=== PATIENT | male | born 1965 | race African-American/Black ===

== ENCOUNTER 2016-10-26 17:22 | Emergency (ER) | payer SELFPAY ==
[~2016-10-26] VITALS: Ht 175.3 cm; Wt 74.8 kg
[2016-10-26] MEDS ORDERED: ATEN25TA PO (17:33)
[2016-10-26] MEDS ORDERED: HYDR-552 PO (17:39)
[2016-10-26 17:42] LABS: APPEARANCE,URINE Clear (CLEAR); BILIRUBIN,URINE Negative (NEGATIVE); BLOOD, URINE Trace-lysed Ery/uL (NEGATIVE); COLOR,URINE Yellow (YELLOW); KETONES,URINE Negative (NEGATIVE); LEUKOCYTE ESTERASE ,URINE Negative (NEGATIVE); NITRITE, URINE Negative (NEGATIVE); PH,URINE 5.5 (5.0-8.0); PROTEIN,URINE Trace mg/dl (NEGATIVE); UGLUCOSE Negative (NEGATIVE); UROBILINOGEN,URINE 0.2 EU/dL (0.2)
[2016-10-26 17:42] LABS: BASOPHILS # (AUTO) 0.1 /CMM (0.0-0.2); BASOPHILS % (AUTO) 0.9 % (0.0-2.0); EOSINOPHILS # (AUTO) 0.5 /CMM (0.0-0.7); EOSINOPHILS % (AUTO) 8.5 % (0.0-6.0); HEMATOCRIT 37 % (39-51); HEMOGLOBIN 12.3 g/dL (13.5-17.5); LYMPHOCYTES # (AUTO) 2.7 /CMM (0.8-4.8); LYMPHOCYTES % (AUTO) 49.3 % (20.0-44.0); MEAN CORPUSCULAR HEMOGLOBIN 32 PG (26.0-33.0); MEAN CORPUSCULAR HGB CONC 33 g/dl (31.0-36.0); MEAN CORPUSCULAR VOLUME 95 fL (80-96); MONOCYTES # (AUTO) 0.4 /CMM (0.1-1.30); MONOCYTES % (AUTO) 6.6 % (2.0-12.0); NEUTROPHILS % (AUTO) 34.7 % (43.0-81.0); PLATELET COUNT (AUTO) 326 /CMM (150-450); RDW COEFFICIENT OF VARIATION 14.2 (11.5-15.0); RED BLOOD CELL COUNT(AUTO) 3.86 MIL/uL (4.5-6.0); WHITE BLOOD COUNT (AUTO) 5.7 K/uL (4.3-11.0)
--- NOTE | 2016-10-26 17:46 | NUR ---
PT TO ED ROOM 03. MEDICAL CLEARANCE FOR SCVN PLACEMENT. A/A/O. NAD. VS WNL. AMBULATORY W STEADY GAIT. SIDE RAISL UP. HOB ELEVATED. URINE COLLECTED, BLOOD DRAWN, SEEN AND EVALUATED BY ED PROVIDER.
[2016-10-26 17:49] LABS: CALCIUM, SERUM 8.8 mg/dL (8.5-10.1); CARBON DIOXIDE 30 mmol/L (21-32); CHLORIDE 108 mmol/L (98-107); CREATININE 0.9 mg/dL (0.6-1.3); GLUCOSE 86 mg/dL (74-106); POTASSIUM 4.4 mmol/L (3.5-5.1); SODIUM SERUM 142 mmol/L (136-145); UREA NITROGEN, BLOOD 12 mg/dL (7-18)
[2016-10-26 17:55] LABS: ALANINE AMINOTRANSFERASE 28 U/L (12-78); ALBUMIN 3.6 g/dL (3.4-5.0); ALCOHOL, BLOOD < 3 mg/dL (0-0); ALKALINE PHOSPHATASE 80 U/L (46-116); ASPARTATE AMINOTRANSFERASE 35 U/L (15-37); BILIRUBIN,DIRECT 0.1 mg/dL (0.0-0.2); BILIRUBIN,TOTAL 0.2 mg/dL (0.2-1.0); TOTAL PROTEIN, SERUM 7.1 g/dL (6.4-8.2)
[2016-10-26 17:56] LABS: BACTERIA,URINE Few /HPF (None Seen); RBC,URINE 0-2 /HPF (0-2); SQUAMOUS EPITHELIAL CELL,UR Rare /HPF (None Seen); WBC,URINE 0-2 /HPF (0-3)
[2016-10-26 17:58] LABS: ACETAMINOPHEN 0 ug/ml (10-30)
--- NOTE | 2016-10-26 17:59 | NUR ---
CALLED FOR FOOD TRAY
--- NOTE | 2016-10-26 18:07 | NUR ---
CALLED TRANSPORT ETA IS 60MIN
[2016-10-26 19:37] VITALS: BP 160/89
--- NOTE | 2016-10-26 19:37 | NUR ---
TRANSPORT AT BEDSIDE REPORT GIVEN TO EMT.
== END 2016-10-26 19:38 | disposition home or self-care (01) ==
LOC: ER 17:24 → EDBD 17:24 → ER 19:38
DX: F14.10 Cocaine abuse, uncomplicated (principal); F12.10 Cannabis abuse, uncomplicated; R45.851 Suicidal ideations; I10 Essential (primary) hypertension; F31.9 Bipolar disorder, unspecified; F20.9 Schizophrenia, unspecified; G89.29 Other chronic pain; M54.9 Dorsalgia, unspecified
CPT/HCPCS: 36415; 80048-TC; 80076-TC; 80305; 81000-TC; 85025-TC; A4606; G0480; Z7610

== ENCOUNTER 2016-11-05 16:02 | Emergency (ER) | payer SELFPAY ==
[~2016-11-05] VITALS: Ht 175.3 cm; Wt 74.4 kg
[2016-11-05 16:02] VITALS: BP 130/69
[~2016-11-05 16:02] MED LIST: ATEN25TA PO; HYDR-552 PO
--- NOTE | 2016-11-05 16:05 | NUR ---
SEND [place] [facility] MEDICAL CLEARANCE FOR ADMISSION. VSS. NO SI/NO HI
[2016-11-05 16:39] LABS: APPEARANCE,URINE Clear (CLEAR); BILIRUBIN,URINE SMALL (NEGATIVE); BLOOD, URINE Trace-intact Ery/uL (NEGATIVE); KETONES,URINE Trace (NEGATIVE); LEUKOCYTE ESTERASE ,URINE Negative (NEGATIVE); NITRITE, URINE Negative (NEGATIVE); PROTEIN,URINE Negative (NEGATIVE); UGLUCOSE Negative (NEGATIVE); UROBILINOGEN,URINE 0.2 EU/dL (0.2)
[2016-11-05 16:40] LABS: COLOR,URINE Dark Yellow (YELLOW)
[2016-11-05 16:45] LABS: BASOPHILS % (AUTO) 0.8 % (0.0-2.0); EOSINOPHILS # (AUTO) 0.4 /CMM (0.0-0.7); HEMATOCRIT 40 % (39-51); HEMOGLOBIN 13.3 g/dL (13.5-17.5); LYMPHOCYTES # (AUTO) 2.8 /CMM (0.8-4.8); LYMPHOCYTES % (AUTO) 47.7 % (20.0-44.0); MEAN CORPUSCULAR HEMOGLOBIN 32 PG (26.0-33.0); MEAN CORPUSCULAR HGB CONC 33 g/dl (31.0-36.0); MEAN CORPUSCULAR VOLUME 95 fL (80-96); MONOCYTES # (AUTO) 0.3 /CMM (0.1-1.30); MONOCYTES % (AUTO) 4.8 % (2.0-12.0); NEUTROPHILS # (AUTO) 2.3 /CMM (1.8-8.9); NEUTROPHILS % (AUTO) 39.7 % (43.0-81.0); PLATELET COUNT (AUTO) 308 /CMM (150-450); RDW COEFFICIENT OF VARIATION 14.2 (11.5-15.0); RED BLOOD CELL COUNT(AUTO) 4.18 MIL/uL (4.5-6.0); WHITE BLOOD COUNT (AUTO) 5.8 K/uL (4.3-11.0)
[2016-11-05 16:55] LABS: BACTERIA,URINE Few /HPF (None Seen); SQUAMOUS EPITHELIAL CELL,UR Rare /HPF (None Seen); WBC,URINE 0-2 /HPF (0-3)
[2016-11-05 16:56] LABS: CALCIUM, SERUM 8.5 mg/dL (8.5-10.1); CREATININE 1.1 mg/dL (0.6-1.3); POTASSIUM 3.9 mmol/L (3.5-5.1)
[2016-11-05 17:02] LABS: ALBUMIN 3.8 g/dL (3.4-5.0); BILIRUBIN,TOTAL 0.2 mg/dL (0.2-1.0); SALICYLATE 1.6 mg/dL (2.8-20.0)
--- NOTE | 2016-11-05 17:36 | NUR ---
CALLED [facility] FOR TRANPSORT, ETA OF 30 MINS WAS GIVEN.
--- NOTE | 2016-11-05 17:58 | NUR ---
[facility]
== END 2016-11-05 18:02 | disposition home or self-care (01) ==
LOC: ER 16:05
DX: F31.9 Bipolar disorder, unspecified (principal); I10 Essential (primary) hypertension; R45.851 Suicidal ideations; F20.9 Schizophrenia, unspecified; G89.29 Other chronic pain; M54.9 Dorsalgia, unspecified
CPT/HCPCS: 36415; 80048-TC; 80076-TC; 80305; 81000-TC; 85025-TC; A4606; G0480; Z7610

== ENCOUNTER 2016-11-14 19:49 | Emergency (ER) | payer OTHER ==
[~2016-11-14] VITALS: Ht 175.3 cm; Wt 72.6 kg
--- NOTE | 2016-11-14 20:49 | NUR ---
+ ADMITS TO USING DRUGS - MARIJUANA, ALCOHOL AND CRYSTAL METH. ON ASSESSMENT
--- NOTE | 2016-11-14 20:50 | NUR ---
PROVIDED SITTER AT BESIDE FOR SAFETY.
[2016-11-14 21:24] LABS: BASOPHILS % (AUTO) 0.6 % (0.0-2.0); EOSINOPHILS # (AUTO) 0.4 /CMM (0.0-0.7); EOSINOPHILS % (AUTO) 6.9 % (0.0-6.0); HEMATOCRIT 34 % (39-51); HEMOGLOBIN 11.4 g/dL (13.5-17.5); LYMPHOCYTES # (AUTO) 3.2 /CMM (0.8-4.8); LYMPHOCYTES % (AUTO) 49.9 % (20.0-44.0); MEAN CORPUSCULAR HEMOGLOBIN 32 PG (26.0-33.0); MEAN CORPUSCULAR HGB CONC 33 g/dl (31.0-36.0); MEAN CORPUSCULAR VOLUME 95 fL (80-96); MONOCYTES # (AUTO) 0.5 /CMM (0.1-1.30); MONOCYTES % (AUTO) 8.5 % (2.0-12.0); NEUTROPHILS # (AUTO) 2.2 /CMM (1.8-8.9); NEUTROPHILS % (AUTO) 34.1 % (43.0-81.0); PLATELET COUNT (AUTO) 233 /CMM (150-450); RDW COEFFICIENT OF VARIATION 14.8 (11.5-15.0); RED BLOOD CELL COUNT(AUTO) 3.57 MIL/uL (4.5-6.0); WHITE BLOOD COUNT (AUTO) 6.3 K/uL (4.3-11.0)
[2016-11-14 21:25] LABS: APPEARANCE,URINE Clear (CLEAR); BILIRUBIN,URINE Negative (NEGATIVE); BLOOD, URINE Trace-intact Ery/uL (NEGATIVE); COLOR,URINE Yellow (YELLOW); KETONES,URINE Negative (NEGATIVE); LEUKOCYTE ESTERASE ,URINE Negative (NEGATIVE); NITRITE, URINE Negative (NEGATIVE); PH,URINE 5.5 (5.0-8.0); PROTEIN,URINE Negative (NEGATIVE); UGLUCOSE Negative (NEGATIVE)
[2016-11-14 21:35] LABS: CALCIUM, SERUM 8.2 mg/dL (8.5-10.1); CREATININE 0.8 mg/dL (0.6-1.3); POTASSIUM 3.3 mmol/L (3.5-5.1)
[2016-11-14 21:39] LABS: ALBUMIN 3.2 g/dL (3.4-5.0); BILIRUBIN,TOTAL 0.1 mg/dL (0.2-1.0); TOTAL PROTEIN, SERUM 6.6 g/dL (6.4-8.2)
[2016-11-14 21:41] LABS: SALICYLATE 2.2 mg/dL (2.8-20.0)
[2016-11-14 21:48] LABS: BACTERIA,URINE None seen /HPF (None Seen); RBC,URINE 2-3/HPF /HPF (0-2); SQUAMOUS EPITHELIAL CELL,UR Rare /HPF (None Seen); URINE AMORPHOUS URATE Few /HPF (None Seen); WBC,URINE 0-2 /HPF (0-3)
--- NOTE | 2016-11-14 21:54 | NUR ---
ART CAPILLA PACK TRAIN DRIVER AT BEDSIDE
[2016-11-14] MEDS ORDERED: POTASSIUM CHLORIDE 20 MEQ TAB.PRT.SR PO ONE ×2 (21:56→22:00)
--- NOTE | 2016-11-14 22:22 | NUR ---
AWARE OF PLANS FOR TRANSFER. RESP TIGN QUIETLY WITH NO S/S OF DISTRESS.
--- NOTE | 2016-11-14 22:37 | NUR ---
CALLED [facility] FOR TRANSPORT, ETA OF 30 MINS WAS GIVEN.
--- NOTE | 2016-11-14 23:51 | NUR ---
AWAITING TRANSPORT. NAD NOTED
--- NOTE | 2016-11-15 00:38 | NUR ---
[facility] ETA: 30 MINS. PREVIOUS AMBULANCE WAS APPARENTLY CANCELLED BY AN ER STAFF MEMBER PER [facility] DISPATCH.
[2016-11-15 01:13] VITALS: BP 138/81
--- NOTE | 2016-11-15 01:13 | NUR ---
STILL AWAITING [facility] TRANSPORT. NAD NOTED.
--- NOTE | 2016-11-15 01:18 | NUR ---
REPORT GIVEN TO [facility] STAFF.
== END 2016-11-15 01:25 ==
LOC: ER 19:50
DX: F10.10 Alcohol abuse, uncomplicated (principal); E87.6 Hypokalemia; R45.851 Suicidal ideations; F12.10 Cannabis abuse, uncomplicated; F14.10 Cocaine abuse, uncomplicated; F15.10 Other stimulant abuse, uncomplicated; F41.9 Anxiety disorder, unspecified; F20.9 Schizophrenia, unspecified; F17.200 Nicotine dependence, unspecified, uncomplicated; I10 Essential (primary) hypertension; G89.29 Other chronic pain; M54.9 Dorsalgia, unspecified
CPT/HCPCS: 36415; 80048; 80076; 80305; 80329; 81001; 85025; 99285; 99406; A4606; G0480 ×2; Z7610; 81000-TC

== ENCOUNTER 2017-01-21 01:30 | Emergency (ER) | payer OTHER ==
[~2017-01-21] VITALS: Ht 175.3 cm; Wt 81.6 kg
--- NOTE | 2017-01-21 01:40 | NUR ---
To bed 12 a 51 yo male patient bb self; si with plan; jump in front of traffic. Patient also admits to drinking etoh. Nad noted. Breathing even and unlabored. vss. nondiaphoretic. safety and suicide precautions in place.
[2017-01-21 02:16] LABS: APPEARANCE,URINE CLEAR (CLEAR); BILIRUBIN,URINE NEGATIVE (NEGATIVE); BLOOD, URINE TRACE Ery/uL (NEGATIVE); COLOR,URINE DARK YELLOW (YELLOW); KETONES,URINE TRACE (NEGATIVE); LEUKOCYTE ESTERASE ,URINE NEGATIVE (NEGATIVE); NITRITE, URINE NEGATIVE (NEGATIVE); PROTEIN,URINE NEGATIVE (NEGATIVE); UGLUCOSE NEGATIVE (NEGATIVE); UROBILINOGEN,URINE 0.2 EU/dL (0.2)
[2017-01-21 02:18] LABS: BASOPHILS % (AUTO) 0.3 % (0.0-2.0); EOSINOPHILS # (AUTO) 0.3 /CMM (0.0-0.7); EOSINOPHILS % (AUTO) 4.1 % (0.0-6.0); HEMATOCRIT 43 % (39-51); HEMOGLOBIN 14.1 g/dL (13.5-17.5); LYMPHOCYTES # (AUTO) 2.6 /CMM (0.8-4.8); LYMPHOCYTES % (AUTO) 35.9 % (20.0-44.0); MEAN CORPUSCULAR HEMOGLOBIN 31 PG (26.0-33.0); MEAN CORPUSCULAR HGB CONC 33 g/dl (31.0-36.0); MEAN CORPUSCULAR VOLUME 93 fL (80-96); MONOCYTES # (AUTO) 0.4 /CMM (0.1-1.30); MONOCYTES % (AUTO) 5.9 % (2.0-12.0); NEUTROPHILS % (AUTO) 53.8 % (43.0-81.0); PLATELET COUNT (AUTO) 165 /CMM (150-450); RDW COEFFICIENT OF VARIATION 15.5 (11.5-15.0); WHITE BLOOD COUNT (AUTO) 7.4 K/uL (4.3-11.0)
[2017-01-21 02:21] LABS: BACTERIA,URINE Few /HPF (None Seen); SQUAMOUS EPITHELIAL CELL,UR Few /HPF (None Seen); WBC,URINE 0-2 /HPF (0-3)
[2017-01-21 02:25] LABS: CALCIUM, SERUM 8.4 mg/dL (8.5-10.1); CREATININE 1.1 mg/dL (0.6-1.3)
[2017-01-21 02:31] LABS: BILIRUBIN,DIRECT 0.1 mg/dL (0.0-0.2); BILIRUBIN,TOTAL 0.2 mg/dL (0.2-1.0); SALICYLATE 3.4 mg/dL (2.8-20.0); TOTAL PROTEIN, SERUM 7.8 g/dL (6.4-8.2)
[2017-01-21] MEDS ORDERED: POTASSIUM CHLORIDE 20 MEQ TAB.PRT.SR PO ONE ×2 (02:57→03:00)
[2017-01-21 04:20] VITALS: BP 129/80
--- NOTE | 2017-01-21 04:20 | NUR ---
patient is sleeping comfortably in bed at this time. vss.
--- NOTE | 2017-01-21 05:30 | NUR ---
patient is awake, asking for some snacks, provided crackers and juice. nad noted.
--- NOTE | 2017-01-21 05:45 | NUR ---
Patient walked out from facility. Dr Boswell notified and Charge Nurse Hi notified. VSS. Ambulatory with steady gait.
== END 2017-01-21 07:15 | disposition left against medical advice (07) ==
LOC: ER 01:30
DX: R45.851 Suicidal ideations (principal); F10.129 Alcohol abuse with intoxication, unspecified; F12.10 Cannabis abuse, uncomplicated; G89.29 Other chronic pain; M54.9 Dorsalgia, unspecified; F31.9 Bipolar disorder, unspecified; F20.9 Schizophrenia, unspecified; I10 Essential (primary) hypertension; F17.200 Nicotine dependence, unspecified, uncomplicated
CPT/HCPCS: 36415; 80048; 80076; 80305; 80329; 81001; 85025; 99284; A4606; G0480 ×2; Z7610; 81000-TC

== ENCOUNTER 2017-07-06 05:04 | Emergency (ER) | payer OTHER ==
[~2017-07-06] VITALS: Ht 175.3 cm; Wt 72.6 kg
--- NOTE | 2017-07-06 05:30 | NUR ---
PT AMBULATORY TO ER BED 12. BIB SELF WAS SENT FORM [facility] FOR MEDICAL CLEARANCE FOR SI, WITH PLAN OF WANTING TO RUN INTO TRAFFIC. PT PLACED ON SPORTS MEDICINE SPECIALIST. VSS/RESP EVEN UNLABORED/NAD NOTED/SKIN WARM AND DRY/DENIES N-V-D/AFEBRILE/AOX4. AWAITING MD TABOR.
--- NOTE | 2017-07-06 05:35 | NUR ---
LAB AT BEDSIDE TO DRAW.
[2017-07-06 05:38] LABS: BASOPHILS % (AUTO) 0.2 % (0.0-2.0); EOSINOPHILS % (AUTO) 4.8 % (0.0-6.0); HEMATOCRIT 44 % (39-51); HEMOGLOBIN 14.7 g/dL (13.5-17.5); LYMPHOCYTES # (AUTO) 3.6 /CMM (0.8-4.8); LYMPHOCYTES % (AUTO) 47.2 % (20.0-44.0); MEAN CORPUSCULAR HGB CONC 33 g/dl (31.0-36.0); MEAN CORPUSCULAR VOLUME 95 fL (80-96); MONOCYTES # (AUTO) 0.4 /CMM (0.1-1.30); MONOCYTES % (AUTO) 5.4 % (2.0-12.0); NEUTROPHILS # (AUTO) 3.2 /CMM (1.8-8.9); NEUTROPHILS % (AUTO) 42.4 % (43.0-81.0); PLATELET COUNT (AUTO) 380 /CMM (150-450); RDW COEFFICIENT OF VARIATION 17.1 (11.5-15.0); RED BLOOD CELL COUNT(AUTO) 4.62 MIL/uL (4.5-6.0); WHITE BLOOD COUNT (AUTO) 7.5 K/uL (4.3-11.0)
[2017-07-06 05:47] LABS: CALCIUM, SERUM 8.5 mg/dL (8.5-10.1); CREATININE 0.8 mg/dL (0.6-1.3); POTASSIUM 3.7 mmol/L (3.5-5.1)
[2017-07-06 05:55] LABS: BILIRUBIN,DIRECT 0.1 mg/dL (0.0-0.2); BILIRUBIN,TOTAL 0.2 mg/dL (0.2-1.0); SALICYLATE 3.6 mg/dL (2.8-20.0)
--- NOTE | 2017-07-06 07:25 | NUR ---
ENDORSED TO BERNARDINO HIGH FOR MELBA.
--- NOTE | 2017-07-06 08:06 | NUR ---
PT NOTED AWAKE AND ALERT. AMBULATORY WITH A STEADY GAIT. WANTED TO STEP OUTSIDE. MD AWARE.
--- NOTE | 2017-07-06 08:09 | NUR ---
PT BACK IN THE ER UNIT.
--- NOTE | 2017-07-06 09:19 | NUR ---
SPOKE TO MARY JANE AT [facility] INTAKE [phone]. PER MARY JANE ALCOHOL LEVEL MUST BE BELOW 100 TO BE ACCEPTED.
--- NOTE | 2017-07-06 10:30 | NUR ---
PT PROVIDED WITH FOOD TRAY ASA REQUESTED.
[2017-07-06 13:30] VITALS: BP 129/71
--- NOTE | 2017-07-06 14:11 | NUR ---
SPOKE TO FOSTER AT [facility], THEY ARE SAVING A BED FOR HIM AND PATIENT CAN BE TRANSFERED OVER WHEN SERUM ALCOHOL LEVEL IS BELOW 100.
--- NOTE | 2017-07-06 14:40 | NUR ---
PT NOTED AAOX3. WALKING AROUND THE UNIT. DENIES SI/HI. CALM, COOPERATIVE, DIRECTABLE.
--- NOTE | 2017-07-06 15:00 | NUR ---
Patient is resting comfortably in bed with eyes closed. Easily aroused. VSS
--- NOTE | 2017-07-06 15:50 | NUR ---
Patient eloped from facility. ER MD notified.
== END 2017-07-06 16:25 | disposition left against medical advice (07) ==
LOC: ER 05:07
DX: F10.129 Alcohol abuse with intoxication, unspecified (principal); R45.851 Suicidal ideations; F31.9 Bipolar disorder, unspecified; I10 Essential (primary) hypertension; G89.29 Other chronic pain; F20.9 Schizophrenia, unspecified; F17.200 Nicotine dependence, unspecified, uncomplicated; Z60.2 Problems related to living alone
CPT/HCPCS: 36415; 80048-TC; 80076-TC; 80305; 85025-TC; A4606; G0480; Z7610

== ENCOUNTER 2017-07-06 23:28 | Emergency (ER) | payer OTHER ==
[~2017-07-06] VITALS: Ht 175.3 cm; Wt 81.6 kg
--- NOTE | 2017-07-06 23:40 | NUR ---
TO BED 15 A 51 YO MALE PATIENT [place], PT STATES + SI - HI PLAN TO "OVERDOSE ON MEDICATIONS." PATIENT IS AAOX3, NAD NOTED. VSS. SKIN WARM AND DRY. AMBULATORY. SAFETY AND SUICIDE PRECAUTION IN PLACE. WILL CLOSELY MONITOR.
--- NOTE | 2017-07-07 00:20 | NUR ---
WAREHOUSE LOGISTICS MANAGER AT BEDSIDE TO DRAW BLOOD.
[2017-07-07 00:38] LABS: BASOPHILS % (AUTO) 0.1 % (0.0-2.0); EOSINOPHILS % (AUTO) 4.8 % (0.0-6.0); HEMATOCRIT 44 % (39-51); LYMPHOCYTES # (AUTO) 2.9 /CMM (0.8-4.8); LYMPHOCYTES % (AUTO) 44.9 % (20.0-44.0); MEAN CORPUSCULAR HGB CONC 34 g/dl (31.0-36.0); MEAN CORPUSCULAR VOLUME 94 fL (80-96); MONOCYTES # (AUTO) 0.3 /CMM (0.1-1.30); MONOCYTES % (AUTO) 5.1 % (2.0-12.0); NEUTROPHILS % (AUTO) 45.1 % (43.0-81.0); PLATELET COUNT (AUTO) 336 /CMM (150-450); RDW COEFFICIENT OF VARIATION 16.8 (11.5-15.0); RED BLOOD CELL COUNT(AUTO) 4.72 MIL/uL (4.5-6.0); WHITE BLOOD COUNT (AUTO) 6.6 K/uL (4.3-11.0)
[2017-07-07 00:39] LABS: APPEARANCE,URINE CLEAR (CLEAR); BILIRUBIN,URINE NEGATIVE (NEGATIVE); BLOOD, URINE 1+ Ery/uL (NEGATIVE); COLOR,URINE YELLOW (YELLOW); KETONES,URINE NEGATIVE (NEGATIVE); LEUKOCYTE ESTERASE ,URINE NEGATIVE (NEGATIVE); NITRITE, URINE NEGATIVE (NEGATIVE); PROTEIN,URINE NEGATIVE (NEGATIVE); UGLUCOSE NEGATIVE (NEGATIVE); UROBILINOGEN,URINE 0.2 EU/dL (0.2)
[2017-07-07 00:52] LABS: BACTERIA,URINE None seen /HPF (None Seen); SQUAMOUS EPITHELIAL CELL,UR Few /HPF (None Seen); WBC,URINE 0-2 /HPF (0-3)
[2017-07-07 00:57] LABS: CALCIUM, SERUM 8.6 mg/dL (8.5-10.1); CREATININE 0.9 mg/dL (0.6-1.3); POTASSIUM 4.1 mmol/L (3.5-5.1)
[2017-07-07 01:03] LABS: BILIRUBIN,DIRECT 0.1 mg/dL (0.0-0.2); BILIRUBIN,TOTAL 0.2 mg/dL (0.2-1.0); SALICYLATE 3.2 mg/dL (2.8-20.0); TOTAL PROTEIN, SERUM 8.1 g/dL (6.4-8.2)
--- NOTE | 2017-07-07 01:24 | NUR ---
PATIENT IS SLEEPING COMFORTABLY AT THIS TIME.
[2017-07-07 05:12] VITALS: BP 141/74
--- NOTE | 2017-07-07 05:12 | NUR ---
PATIENT IN BED, NO S/S OF DISTRESS NOTED.
--- NOTE | 2017-07-07 07:00 | NUR ---
PATIENT WOKE UP. SEEN WALKED WITH STEADY GAIT AND SAID HES HUNGRY. PATIENT PROVIDED WITH FOOD AND JUICE.
--- NOTE | 2017-07-07 07:14 | NUR ---
PATIENT VERBALIZED AT THIS TIME THAT HE IS NOT SUICIDAL OR NO THOUGHTS/PLANS OF HURTING HIMSELF AND HE JUST WANTS TO GO HOME. VSS. NAD NOTED. DR MIX NOTIFIED.
== END 2017-07-07 07:23 | disposition left against medical advice (07) ==
LOC: ER 23:38
DX: R45.851 Suicidal ideations (principal); F19.10 Other psychoactive substance abuse, uncomplicated; I10 Essential (primary) hypertension; G89.29 Other chronic pain; F20.9 Schizophrenia, unspecified; F31.9 Bipolar disorder, unspecified; F17.200 Nicotine dependence, unspecified, uncomplicated; Z60.2 Problems related to living alone
CPT/HCPCS: 36415; 80048-TC; 80076-TC; 80305; 81000-TC; 85025-TC; A4606; G0480; Z7610

== ENCOUNTER 2017-07-08 01:34 | Emergency (ER) | payer OTHER ==
[~2017-07-08] VITALS: Ht 175.3 cm; Wt 77.1 kg
--- NOTE | 2017-07-08 02:30 | NUR ---
TO BD 14 A 51 YO MALE PATIENT BIB SELF C/O +SI/-HI. "JUMP IN FRONT OF A BUS". OUT OF MEDS. PATIENT IS AAOX3, VSS. NAD NOTED. SAFETY AND SUICIDAL PRECAUTIONS IN PLACE.
[2017-07-08 02:57] LABS: BASOPHILS % (AUTO) 0.6 % (0.0-2.0); EOSINOPHILS % (AUTO) 3.6 % (0.0-6.0); HEMATOCRIT 46 % (39-51); HEMOGLOBIN 15.4 g/dL (13.5-17.5); LYMPHOCYTES # (AUTO) 2.5 /CMM (0.8-4.8); MEAN CORPUSCULAR HGB CONC 34 g/dl (31.0-36.0); MEAN CORPUSCULAR VOLUME 93 fL (80-96); MONOCYTES # (AUTO) 0.4 /CMM (0.1-1.30); MONOCYTES % (AUTO) 6.7 % (2.0-12.0); NEUTROPHILS # (AUTO) 2.8 /CMM (1.8-8.9); NEUTROPHILS % (AUTO) 47.1 % (43.0-81.0); PLATELET COUNT (AUTO) 318 /CMM (150-450); RDW COEFFICIENT OF VARIATION 16.6 (11.5-15.0); RED BLOOD CELL COUNT(AUTO) 4.89 MIL/uL (4.5-6.0); WHITE BLOOD COUNT (AUTO) 6.1 K/uL (4.3-11.0)
[2017-07-08 03:06] LABS: APPEARANCE,URINE CLEAR (CLEAR); BILIRUBIN,URINE NEGATIVE (NEGATIVE); BLOOD, URINE 2+ Ery/uL (NEGATIVE); COLOR,URINE YELLOW (YELLOW); KETONES,URINE NEGATIVE (NEGATIVE); LEUKOCYTE ESTERASE ,URINE NEGATIVE (NEGATIVE); NITRITE, URINE NEGATIVE (NEGATIVE); PROTEIN,URINE 1+ mg/dl (NEGATIVE); UGLUCOSE NEGATIVE (NEGATIVE); UROBILINOGEN,URINE 0.2 EU/dL (0.2)
[2017-07-08 03:16] LABS: ALBUMIN 4.4 g/dL (3.4-5.0); BILIRUBIN,DIRECT 0.1 mg/dL (0.0-0.2); BILIRUBIN,TOTAL 0.3 mg/dL (0.2-1.0); CALCIUM, SERUM 9.1 mg/dL (8.5-10.1); CREATININE 0.9 mg/dL (0.6-1.3); SALICYLATE 3.2 mg/dL (2.8-20.0); TOTAL PROTEIN, SERUM 8.5 g/dL (6.4-8.2)
[2017-07-08 03:22] LABS: BACTERIA,URINE None seen /HPF (None Seen); SQUAMOUS EPITHELIAL CELL,UR Few /HPF (None Seen); WBC,URINE 0-2 /HPF (0-3)
[2017-07-08 03:23] LABS: URIC ACID CRYSTALS,URINE Many /HPF (None Seen)
--- NOTE | 2017-07-08 03:57 | NUR ---
CLINTON CALLED IN FOR EVAL.
--- NOTE | 2017-07-08 08:30 | NUR ---
SHANAV CALLED,SPOKE WITH MARY JANE PETERSEN, WILL ACCEPT HIM IF ALCOHOL LEVEL IS BELOW 100 AND MEDICALLY CLEARED FOE PSYCH ADMISSION
[2017-07-08 08:46] VITALS: BP 155/80
--- NOTE | 2017-07-08 09:06 | NUR ---
[facility]. Dr. anderson notified.
== END 2017-07-08 09:09 | disposition left against medical advice (07) ==
LOC: ER 01:34
DX: F19.10 Other psychoactive substance abuse, uncomplicated (principal); R45.851 Suicidal ideations; I10 Essential (primary) hypertension; F20.9 Schizophrenia, unspecified; F32.9 Major depressive disorder, single episode, unspecified; F17.200 Nicotine dependence, unspecified, uncomplicated; Z60.2 Problems related to living alone
CPT/HCPCS: 36415; 80048-TC; 80076-TC; 80305; 81000-TC; 85025-TC; A4606; G0480; Z7610

== ENCOUNTER 2017-07-09 10:44 | Emergency (ER) | payer OTHER ==
[~2017-07-09] VITALS: Ht 177.8 cm; Wt 77.1 kg
--- NOTE | 2017-07-09 10:50 | NUR ---
PRESENTS TO ER C/O SI WITHOUT PLAN, NO HI. WAS HERE YESTERDAY FOR SAME AND ELOPED. ALSO C/O COUGH AND CONGESTION. PATIENT IS AOX 4, BREATHING EVEN AND UNLABORED. NO SOB, NAD, VITALS STABLE. SAFETY AND COMFORT MEASURES IN PLACE. AWAITING MD ORDERS.
[2017-07-09 11:08] LABS: BASOPHILS % (AUTO) 0.4 % (0.0-2.0); EOSINOPHILS % (AUTO) 2.3 % (0.0-6.0); HEMATOCRIT 43 % (39-51); HEMOGLOBIN 14.4 g/dL (13.5-17.5); LYMPHOCYTES # (AUTO) 1.5 /CMM (0.8-4.8); MEAN CORPUSCULAR HGB CONC 33 g/dl (31.0-36.0); MEAN CORPUSCULAR VOLUME 93 fL (80-96); MONOCYTES # (AUTO) 0.3 /CMM (0.1-1.30); MONOCYTES % (AUTO) 5.2 % (2.0-12.0); NEUTROPHILS # (AUTO) 4.2 /CMM (1.8-8.9); NEUTROPHILS % (AUTO) 68.1 % (43.0-81.0); PLATELET COUNT (AUTO) 259 /CMM (150-450); RDW COEFFICIENT OF VARIATION 15.8 (11.5-15.0); RED BLOOD CELL COUNT(AUTO) 4.67 MIL/uL (4.5-6.0); WHITE BLOOD COUNT (AUTO) 6.1 K/uL (4.3-11.0)
[2017-07-09 11:16] LABS: CALCIUM, SERUM 8.8 mg/dL (8.5-10.1); CARBON DIOXIDE 24 mmol/L (21-32); CHLORIDE 105 mmol/L (98-107); CREATININE 0.9 mg/dL (0.6-1.3); GLUCOSE 101 mg/dL (74-106); POTASSIUM 3.8 mmol/L (3.5-5.1); SODIUM SERUM 142 mmol/L (136-145); UREA NITROGEN, BLOOD 12 mg/dL (7-18)
[2017-07-09 11:30] LABS: ACETAMINOPHEN < 2 ug/ml (10-30); ALANINE AMINOTRANSFERASE 66 U/L (12-78); ALBUMIN 3.9 g/dL (3.4-5.0); ALCOHOL, BLOOD 215 mg/dL (0-0); ALKALINE PHOSPHATASE 83 U/L (46-116); ASPARTATE AMINOTRANSFERASE 87 U/L (15-37); BILIRUBIN,DIRECT 0.2 mg/dL (0.0-0.2); BILIRUBIN,TOTAL 0.5 mg/dL (0.2-1.0); SALICYLATE 3.2 mg/dL (2.8-20.0)
[2017-07-09] MEDS ORDERED: ATENOLOL 50 MG TABLET PO ONE (11:30)
[2017-07-09] MEDS ORDERED: ATENOLOL 50 MG TABLET ONE (11:37)
--- NOTE | 2017-07-09 11:57 | NUR ---
URINE OBTAINED AND SENT TO LAB.
[2017-07-09 12:17] LABS: BILIRUBIN,URINE SMALL (NEGATIVE); BLOOD, URINE Moderate Ery/uL (NEGATIVE); COLOR,URINE Yellow (YELLOW); KETONES,URINE Negative (NEGATIVE); LEUKOCYTE ESTERASE ,URINE Negative (NEGATIVE); NITRITE, URINE Negative (NEGATIVE); PH,URINE 5.5 (5.0-8.0); PROTEIN,URINE 100 mg/dl (NEGATIVE); UGLUCOSE Negative (NEGATIVE); UROBILINOGEN,URINE 0.2 EU/dL (0.2)
[2017-07-09 12:18] LABS: APPEARANCE,URINE HAZY (CLEAR)
[2017-07-09 12:25] VITALS: BP 153/88
--- NOTE | 2017-07-09 12:25 | NUR ---
PATIENT MD PAULA INFORMED. PATIENT LAST SEEN N STABLE CONDITION, NO IV'S ON PATIENT. LEFT AMBULATORY WITH ALL BELONGINGS.
[2017-07-09 12:27] LABS: BACTERIA,URINE None seen /HPF (None Seen); SQUAMOUS EPITHELIAL CELL,UR Rare /HPF (None Seen); WBC,URINE 0-3 /HPF (0-3)
[2017-07-09 12:29] LABS: SPERM,URINE Many /HPF (None Seen)
== END 2017-07-09 12:25 | disposition left against medical advice (07) ==
LOC: ER 10:45
DX: F10.10 Alcohol abuse, uncomplicated (principal); F31.9 Bipolar disorder, unspecified; I10 Essential (primary) hypertension; F20.9 Schizophrenia, unspecified; F17.200 Nicotine dependence, unspecified, uncomplicated
CPT/HCPCS: 36415; 80048-TC; 80076-TC; 80305; 81000-TC; 85025-TC; A4606; G0480; Z7610

== ENCOUNTER 2017-07-23 06:15 | Emergency (ER) | payer OTHER ==
[~2017-07-23] VITALS: Ht 175.3 cm; Wt 77.1 kg
--- NOTE | 2017-07-23 07:16 | NUR ---
SPOKE WITH MARY JANE AT [facility], THEY WILL TAKE HER ONCE HE IS MEDICALLY CLEARED
[2017-07-23 07:20] LABS: BASOPHILS # (AUTO) 0.1 /CMM (0.0-0.2); BASOPHILS % (AUTO) 0.7 % (0.0-2.0); EOSINOPHILS % (AUTO) 1.9 % (0.0-6.0); HEMATOCRIT 46 % (39-51); HEMOGLOBIN 15.1 g/dL (13.5-17.5); LYMPHOCYTES # (AUTO) 2.1 /CMM (0.8-4.8); LYMPHOCYTES % (AUTO) 29.5 % (20.0-44.0); MEAN CORPUSCULAR HGB CONC 33 g/dl (31.0-36.0); MEAN CORPUSCULAR VOLUME 95 fL (80-96); MONOCYTES # (AUTO) 0.4 /CMM (0.1-1.30); MONOCYTES % (AUTO) 5.7 % (2.0-12.0); NEUTROPHILS # (AUTO) 4.5 /CMM (1.8-8.9); NEUTROPHILS % (AUTO) 62.2 % (43.0-81.0); PLATELET COUNT (AUTO) 354 /CMM (150-450); RDW COEFFICIENT OF VARIATION 17.2 (11.5-15.0); RED BLOOD CELL COUNT(AUTO) 4.87 MIL/uL (4.5-6.0); WHITE BLOOD COUNT (AUTO) 7.2 K/uL (4.3-11.0)
[2017-07-23 07:27] LABS: CALCIUM, SERUM 8.6 mg/dL (8.5-10.1); POTASSIUM 3.9 mmol/L (3.5-5.1)
--- NOTE | 2017-07-23 07:30 | NUR ---
Recieved patient to ED bed 15. Pt is here because he said he feels depressed and he is having SI without definite plan at this time when I asked. Pt was seen here multiple times for the same reason and eloped. VSS NAD RR even and unlabored. Now asking for food. Will cont to monitor
[2017-07-23 07:34] LABS: ALBUMIN 4.2 g/dL (3.4-5.0); BILIRUBIN,DIRECT 0.1 mg/dL (0.0-0.2); BILIRUBIN,TOTAL 0.2 mg/dL (0.2-1.0); TOTAL PROTEIN, SERUM 8.5 g/dL (6.4-8.2)
[2017-07-23 07:45] LABS: BILIRUBIN,URINE NEGATIVE (NEGATIVE); BLOOD, URINE 2+ Ery/uL (NEGATIVE); COLOR,URINE YELLOW (YELLOW); KETONES,URINE NEGATIVE (NEGATIVE); LEUKOCYTE ESTERASE ,URINE NEGATIVE (NEGATIVE); NITRITE, URINE NEGATIVE (NEGATIVE); PH,URINE 5.5 (5.0-8.0); PROTEIN,URINE TRACE mg/dl (NEGATIVE); UGLUCOSE NEGATIVE (NEGATIVE); UROBILINOGEN,URINE 0.2 EU/dL (0.2)
[2017-07-23 08:01] LABS: APPEARANCE,URINE SLIGHTLY CLOUDY (CLEAR)
[2017-07-23 08:11] LABS: BACTERIA,URINE Rare /HPF (None Seen); RBC,URINE 0-2 /HPF (0-2); SQUAMOUS EPITHELIAL CELL,UR None Seen /HPF (None Seen); URIC ACID CRYSTALS,URINE Moderate /HPF (None Seen); WBC,URINE 0-2 /HPF (0-3)
--- NOTE | 2017-07-23 10:01 | NUR ---
Patient is resting comfortably in bed with eyes closed. Easily aroused.
[2017-07-23 11:37] VITALS: BP 122/85
--- NOTE | 2017-07-23 12:11 | NUR ---
CALLED [facility] FOR TRANSPORT ETA OF 30MINS WAS GIVEN. TRIP#[id number]
--- NOTE | 2017-07-23 12:20 | NUR ---
[facility]. Dr. Gray notified
== END 2017-07-23 12:27 | disposition left against medical advice (07) ==
LOC: ER 06:15
DX: F31.9 Bipolar disorder, unspecified (principal); I10 Essential (primary) hypertension; R45.851 Suicidal ideations; F17.200 Nicotine dependence, unspecified, uncomplicated; F10.10 Alcohol abuse, uncomplicated; F20.9 Schizophrenia, unspecified; Z60.2 Problems related to living alone
CPT/HCPCS: 36415; 80048; 80076; 80305; 81001; 85025; 99284; A4606; G0480 ×2; Z7610; 81000-TC

== ENCOUNTER 2017-07-31 19:39 | Emergency (ER) | payer OTHER ==
[~2017-07-31] VITALS: Ht 175.3 cm; Wt 74.8 kg
[2017-07-31 21:01] LABS: BASOPHILS # (AUTO) 0.1 /CMM (0.0-0.2); BASOPHILS % (AUTO) 1.7 % (0.0-2.0); EOSINOPHILS % (AUTO) 4.1 % (0.0-6.0); HEMATOCRIT 45 % (39-51); HEMOGLOBIN 15.7 g/dL (13.5-17.5); LYMPHOCYTES # (AUTO) 2.4 /CMM (0.8-4.8); LYMPHOCYTES % (AUTO) 57.5 % (20.0-44.0); MEAN CORPUSCULAR HGB CONC 35 g/dl (31.0-36.0); MEAN CORPUSCULAR VOLUME 92 fL (80-96); MONOCYTES # (AUTO) 0.3 /CMM (0.1-1.30); MONOCYTES % (AUTO) 6.6 % (2.0-12.0); NEUTROPHILS # (AUTO) 1.3 /CMM (1.8-8.9); NEUTROPHILS % (AUTO) 30.1 % (43.0-81.0); PLATELET COUNT (AUTO) 333 /CMM (150-450); RDW COEFFICIENT OF VARIATION 15.2 (11.5-15.0); RED BLOOD CELL COUNT(AUTO) 4.88 MIL/uL (4.5-6.0); WHITE BLOOD COUNT (AUTO) 4.3 K/uL (4.3-11.0)
[2017-07-31 21:11] LABS: CALCIUM, SERUM 8.5 mg/dL (8.5-10.1); POTASSIUM 3.7 mmol/L (3.5-5.1)
[2017-07-31 21:18] LABS: ALBUMIN 3.9 g/dL (3.4-5.0); BILIRUBIN,DIRECT 0.1 mg/dL (0.0-0.2); BILIRUBIN,TOTAL 0.2 mg/dL (0.2-1.0); SALICYLATE 6.7 mg/dL (2.8-20.0); TOTAL PROTEIN, SERUM 8.2 g/dL (6.4-8.2)
[2017-07-31 21:25] LABS: APPEARANCE,URINE Clear (CLEAR); BILIRUBIN,URINE Negative (NEGATIVE); BLOOD, URINE Trace-lysed Ery/uL (NEGATIVE); COLOR,URINE Yellow (YELLOW); KETONES,URINE Negative (NEGATIVE); LEUKOCYTE ESTERASE ,URINE Negative (NEGATIVE); NITRITE, URINE Negative (NEGATIVE); PROTEIN,URINE Negative (NEGATIVE); UGLUCOSE Negative (NEGATIVE); UROBILINOGEN,URINE 0.2 EU/dL (0.2)
[2017-07-31 21:39] LABS: BACTERIA,URINE Rare /HPF (None Seen); MUCUS,URINE Few /LPF (None Seen); RBC,URINE 3-4/HPF /HPF (0-2); SQUAMOUS EPITHELIAL CELL,UR Rare /HPF (None Seen); URINE AMORPHOUS URATE Few /HPF (None Seen); WBC,URINE 0-2 /HPF (0-3)
--- NOTE | 2017-07-31 23:37 | NUR ---
pt ambulatory w/ steady gait, here for report alcohol withdrawals, admits drinking etoh today, denies SI/HI, no audio/visual hallucinations w/ resp even & unlabored, nad noted. Labs w/ urine sent.
--- NOTE | 2017-08-01 00:10 | NUR ---
ASLEEP IN BED W/ RESP EVEN & UNLABORED, EASILY AROUSABLE W/ NAD NOTED.
--- NOTE | 2017-08-01 00:45 | NUR ---
pt ambulatory w/ steady gait to restroom, nad noted.
--- NOTE | 2017-08-01 02:05 | NUR ---
pt continues to sleep, resting comfortably in bed w/ resp even & unlabored, nad noted. Will continue to monitor.
--- NOTE | 2017-08-01 04:06 | NUR ---
No change in pt status. pt continues to sleep w/ nad noted.
--- NOTE | 2017-08-01 06:08 | NUR ---
PT AMBULATORY W/ STEADY GAIT TO RESTROOM, CALM COOPERATIVE AT THIS TIME.
--- NOTE | 2017-08-01 12:00 | NUR ---
ART AT BEDSIDE FOR PSYCH EVAL
--- NOTE | 2017-08-01 12:18 | NUR ---
PT ALERT CALLED FOR FOOD TRAY
[2017-08-01 17:41] VITALS: BP 148/88
--- NOTE | 2017-08-01 17:42 | NUR ---
REPORT GIVEN TO DAX.
--- NOTE | 2017-08-01 17:43 | NUR ---
Patient is resting comfortably in bed with eyes closed. Easily aroused. VSS
--- NOTE | 2017-08-01 17:45 | NUR ---
CALLED [facility] TO ARRANGE A S TRANSPORT TO [facility]. SPOKE WITH DISPATCHER ABEBE AND WAS GIVEN A AUTOMOTIVE ARTIST TIME OF 8140 TRIP #: [id number]
== END 2017-08-01 18:54 ==
LOC: ER 19:44
DX: Z04.6 Encounter for general psychiatric examination, requested by authority (principal); F10.220 Alcohol dependence with intoxication, uncomplicated; F20.9 Schizophrenia, unspecified; F12.10 Cannabis abuse, uncomplicated; I10 Essential (primary) hypertension; F32.9 Major depressive disorder, single episode, unspecified; F17.210 Nicotine dependence, cigarettes, uncomplicated; Z60.2 Problems related to living alone
CPT/HCPCS: 36415; 80048-TC; 80076-TC; 80305; 81000-TC; 85025-TC; A4606; G0480; Z7610

== ENCOUNTER 2017-08-11 21:14 | Emergency (ER) | payer OTHER ==
[~2017-08-11] VITALS: Ht 175.3 cm; Wt 74.8 kg
--- NOTE | 2017-08-11 21:30 | NUR ---
CALLED PT IN WR X 3. NO RESPONSE AT THIS TIME. WILL FOLLOW UP.
--- NOTE | 2017-08-11 21:57 | NUR ---
CALLED PT IN WR X 3. NO RESPONSE AT THIS TIME. WILL FOLLOW UP.
--- NOTE | 2017-08-11 23:08 | NUR ---
CALLED PT IN WR X 3. NO RESPONSE AT THIS TIME. WILL FOLLOW UP.
--- NOTE | 2017-08-12 00:16 | NUR ---
CALLED PT IN WR X 3. PT WANT TO SLEEP AT THIS TIME. RISK AND BENEFITS EXPLAINED X3. PT STRONGLY REFUSED AT THIS TIME.
--- NOTE | 2017-08-12 01:14 | NUR ---
PT EDUARDOSELF WANTS TO BE MEDICALLY CLEARED FOR [facility]. DENIES SI/HI. PT AOX3 RR EVEN AND UNLABORED. NO SOB NOTED. NAD NOTED. NO NVD AT THIS TIME. PT PLACED ON MONITOR WAITING FOR MD TABOR. URINE COLLECTED.
[2017-08-12 01:28] LABS: BASOPHILS # (AUTO) 0.1 /CMM (0.0-0.2); BASOPHILS % (AUTO) 1.2 % (0.0-2.0); EOSINOPHILS % (AUTO) 5.2 % (0.0-6.0); HEMATOCRIT 47 % (39-51); HEMOGLOBIN 15.7 g/dL (13.5-17.5); MEAN CORPUSCULAR HGB CONC 33 g/dl (31.0-36.0); MEAN CORPUSCULAR VOLUME 93 fL (80-96); MONOCYTES # (AUTO) 0.5 /CMM (0.1-1.30); MONOCYTES % (AUTO) 6.7 % (2.0-12.0); NEUTROPHILS # (AUTO) 2.7 /CMM (1.8-8.9); NEUTROPHILS % (AUTO) 34.9 % (43.0-81.0); PLATELET COUNT (AUTO) 283 /CMM (150-450); RDW COEFFICIENT OF VARIATION 16.9 (11.5-15.0); RED BLOOD CELL COUNT(AUTO) 5.07 MIL/uL (4.5-6.0); WHITE BLOOD COUNT (AUTO) 7.6 K/uL (4.3-11.0)
[2017-08-12 01:39] LABS: APPEARANCE,URINE SL CLOUDY (CLEAR); BILIRUBIN,URINE NEGATIVE (NEGATIVE); BLOOD, URINE 2+ Ery/uL (NEGATIVE); COLOR,URINE YELLOW (YELLOW); KETONES,URINE NEGATIVE (NEGATIVE); LEUKOCYTE ESTERASE ,URINE NEGATIVE (NEGATIVE); NITRITE, URINE NEGATIVE (NEGATIVE); PROTEIN,URINE 2+ mg/dl (NEGATIVE); UGLUCOSE NEGATIVE (NEGATIVE); UROBILINOGEN,URINE 0.2 EU/dL (0.2)
[2017-08-12 01:41] LABS: CALCIUM, SERUM 8.8 mg/dL (8.5-10.1); CREATININE 0.9 mg/dL (0.6-1.3); POTASSIUM 3.8 mmol/L (3.5-5.1)
[2017-08-12 01:49] LABS: ALBUMIN 4.2 g/dL (3.4-5.0); BILIRUBIN,TOTAL 0.2 mg/dL (0.2-1.0); SALICYLATE 3.8 mg/dL (2.8-20.0); TOTAL PROTEIN, SERUM 8.8 g/dL (6.4-8.2)
[2017-08-12 01:55] LABS: BACTERIA,URINE None seen /HPF (None Seen); SQUAMOUS EPITHELIAL CELL,UR Few /HPF (None Seen); URIC ACID CRYSTALS,URINE Moderate /HPF (None Seen); WBC,URINE 0-2 /HPF (0-3)
--- NOTE | 2017-08-12 03:08 | NUR ---
Patient is resting comfortably in bed with eyes closed. Easily aroused. VSS
--- NOTE | 2017-08-12 03:10 | NUR ---
CALLED [facility] X 3. UNABLE TO LEAVE VM TO FOLLOW UP WITH INTAKE COORD.
--- NOTE | 2017-08-12 05:29 | NUR ---
LAB AT BEDSIDE FOR BLOOD DRAW
--- NOTE | 2017-08-12 05:37 | NUR ---
PT MOVED TO ER BED 13. PT WITH ALL PERSONAL BELONGINGS.
--- NOTE | 2017-08-12 07:21 | NUR ---
Patient is resting comfortably in bed with eyes closed. Easily aroused. VSS
--- NOTE | 2017-08-12 08:28 | NUR ---
PATIENT AMBULATES THE RESTROOM WITH STABLE GAIT.
--- NOTE | 2017-08-12 08:36 | NUR ---
FOOD TRAY PROVIDED AT
--- NOTE | 2017-08-12 10:40 | NUR ---
Patient is resting comfortably in bed with eyes closed. Easily aroused. VSS
--- NOTE | 2017-08-12 12:30 | NUR ---
Patient is resting comfortably in bed with eyes closed. Easily aroused. VSS
[2017-08-12 14:20] VITALS: BP 132/84
--- NOTE | 2017-08-12 14:20 | NUR ---
Patient is resting comfortably in bed with eyes closed. Easily aroused. VSS
--- NOTE | 2017-08-12 15:30 | NUR ---
Patient eloped from facility. ER MD notified.
== END 2017-08-12 15:45 | disposition left against medical advice (07) ==
LOC: ER 21:14
DX: F31.9 Bipolar disorder, unspecified (principal); F10.10 Alcohol abuse, uncomplicated; R45.851 Suicidal ideations; I10 Essential (primary) hypertension; F20.9 Schizophrenia, unspecified; F17.200 Nicotine dependence, unspecified, uncomplicated
CPT/HCPCS: 36415; 80048-TC; 80076-TC; 80305; 81000-TC; 85025-TC; A4606; G0480; Z7610

== ENCOUNTER 2017-08-13 00:18 | Emergency (ER) | payer OTHER ==
[~2017-08-13] VITALS: Ht 170.2 cm; Wt 74.8 kg
[2017-08-13 00:45] LABS: BASOPHILS % (AUTO) 0.5 % (0.0-2.0); EOSINOPHILS % (AUTO) 4.2 % (0.0-6.0); HEMATOCRIT 44 % (39-51); HEMOGLOBIN 14.6 g/dL (13.5-17.5); LYMPHOCYTES # (AUTO) 3.4 /CMM (0.8-4.8); LYMPHOCYTES % (AUTO) 51.7 % (20.0-44.0); MEAN CORPUSCULAR HGB CONC 34 g/dl (31.0-36.0); MEAN CORPUSCULAR VOLUME 92 fL (80-96); MONOCYTES # (AUTO) 0.6 /CMM (0.1-1.30); MONOCYTES % (AUTO) 8.5 % (2.0-12.0); NEUTROPHILS # (AUTO) 2.3 /CMM (1.8-8.9); NEUTROPHILS % (AUTO) 35.1 % (43.0-81.0); PLATELET COUNT (AUTO) 290 /CMM (150-450); RDW COEFFICIENT OF VARIATION 16.1 (11.5-15.0); RED BLOOD CELL COUNT(AUTO) 4.71 MIL/uL (4.5-6.0); WHITE BLOOD COUNT (AUTO) 6.5 K/uL (4.3-11.0)
[2017-08-13 01:01] LABS: CALCIUM, SERUM 8.8 mg/dL (8.5-10.1); CREATININE 0.9 mg/dL (0.6-1.3); POTASSIUM 3.4 mmol/L (3.5-5.1)
[2017-08-13 01:08] LABS: ALBUMIN 4.1 g/dL (3.4-5.0); BILIRUBIN,DIRECT 0.1 mg/dL (0.0-0.2); BILIRUBIN,TOTAL 0.3 mg/dL (0.2-1.0); SALICYLATE 3.6 mg/dL (2.8-20.0); TOTAL PROTEIN, SERUM 8.4 g/dL (6.4-8.2)
[2017-08-13 01:29] LABS: APPEARANCE,URINE CLEAR (CLEAR); BILIRUBIN,URINE NEGATIVE (NEGATIVE); BLOOD, URINE 1+ Ery/uL (NEGATIVE); COLOR,URINE YELLOW (YELLOW); KETONES,URINE NEGATIVE (NEGATIVE); LEUKOCYTE ESTERASE ,URINE NEGATIVE (NEGATIVE); NITRITE, URINE NEGATIVE (NEGATIVE); PH,URINE 5.5 (5.0-8.0); PROTEIN,URINE 1+ mg/dl (NEGATIVE); UGLUCOSE NEGATIVE (NEGATIVE); UROBILINOGEN,URINE 0.2 EU/dL (0.2)
[2017-08-13 01:41] LABS: WBC,URINE 0-2 /HPF (0-3)
[2017-08-13 01:42] LABS: BACTERIA,URINE None seen /HPF (None Seen); SQUAMOUS EPITHELIAL CELL,UR Few /HPF (None Seen)
--- NOTE | 2017-08-13 05:53 | NUR ---
PT A/OX4 BREATHING EFFORTLESSLY ON ROOM AIR, PT STATES HE IS HERE BECAUSE HE IS FEELING SUICIDAL AND HAS NOT TAKEN HIS MEDS, PT DENIES HI OR HAVING AN SI PLAN, MD MADE AWARE WILL CONTINUE TO MONITOR.
--- NOTE | 2017-08-13 07:05 | NUR ---
Received report from BERNARDINO Mccoy for MELBA. Assumed care at this point in time.
--- NOTE | 2017-08-13 10:10 | NUR ---
Patient is resting comfortably in bed with eyes closed. Easily aroused. VSS
--- NOTE | 2017-08-13 11:19 | NUR ---
Patient is resting comfortably in bed with eyes closed. Easily aroused. VSS
--- NOTE | 2017-08-13 11:46 | NUR ---
MARINA CALLED, MOODY,NICOLA WANTS CLINICALS FAXED TO [phone]
--- NOTE | 2017-08-13 12:09 | NUR ---
REPORT RECEIVED FROM BLAZE LEBRON FOR MELBA
--- NOTE | 2017-08-13 12:34 | NUR ---
CALLED [facility] FOR TRANSPORT ETA OF 20 MINS WAS GIVEN.
--- NOTE | 2017-08-13 12:39 | NUR ---
VERBALIZED THAT HIS PLAN WAS TO JUMP INTO ONCOMING TRAFFIC TO HURT HIMSELF
[2017-08-13 13:00] VITALS: BP 159/105
--- NOTE | 2017-08-13 13:00 | NUR ---
PT DISCHARGED TO [facility] RICARDO TAVERA, BARBER OR BEAUTY SHOP MANAGER GENER SPOKE WITH MOODY AT [facility]. TRANSPORTED BY [facility] TRANSPORTED IN NO ACUTE DISTRESS, DISCAHRGE INFO AND LABS SENT WITH PT.
== END 2017-08-13 13:00 ==
LOC: ER 00:20
DX: F19.10 Other psychoactive substance abuse, uncomplicated (principal); R45.851 Suicidal ideations; F10.10 Alcohol abuse, uncomplicated; I10 Essential (primary) hypertension; F32.9 Major depressive disorder, single episode, unspecified; F17.200 Nicotine dependence, unspecified, uncomplicated; Z60.2 Problems related to living alone
CPT/HCPCS: 36415; 80048-TC; 80076-TC; 80305; 81000-TC; 85025-TC; A4606; G0480; Z7610

== ENCOUNTER 2017-09-16 16:28 | Emergency (ER) | payer OTHER ==
[~2017-09-16] VITALS: Ht 170.2 cm; Wt 74.8 kg
[2017-09-16 17:05] LABS: APPEARANCE,URINE CLEAR (CLEAR); BILIRUBIN,URINE NEGATIVE (NEGATIVE); BLOOD, URINE 2+ Ery/uL (NEGATIVE); COLOR,URINE YELLOW (YELLOW); KETONES,URINE NEGATIVE (NEGATIVE); LEUKOCYTE ESTERASE ,URINE NEGATIVE (NEGATIVE); NITRITE, URINE NEGATIVE (NEGATIVE); PROTEIN,URINE 1+ mg/dl (NEGATIVE); UGLUCOSE TRACE mg/dL (NEGATIVE); UROBILINOGEN,URINE 0.2 EU/dL (0.2)
[2017-09-16 17:11] LABS: BASOPHILS % (AUTO) 0.1 % (0.0-2.0); EOSINOPHILS % (AUTO) 3.7 % (0.0-6.0); HEMATOCRIT 47 % (39-51); HEMOGLOBIN 15.7 g/dL (13.5-17.5); LYMPHOCYTES # (AUTO) 3.7 /CMM (0.8-4.8); LYMPHOCYTES % (AUTO) 51.6 % (20.0-44.0); MEAN CORPUSCULAR HGB CONC 33 g/dl (31.0-36.0); MEAN CORPUSCULAR VOLUME 95 fL (80-96); MONOCYTES # (AUTO) 0.8 /CMM (0.1-1.30); MONOCYTES % (AUTO) 11.6 % (2.0-12.0); NEUTROPHILS # (AUTO) 2.3 /CMM (1.8-8.9); PLATELET COUNT (AUTO) 123 /CMM (150-450); RDW COEFFICIENT OF VARIATION 16.1 (11.5-15.0); RED BLOOD CELL COUNT(AUTO) 4.92 MIL/uL (4.5-6.0); WHITE BLOOD COUNT (AUTO) 7.1 K/uL (4.3-11.0)
[2017-09-16 17:16] LABS: BACTERIA,URINE Few /HPF (None Seen); MUCUS,URINE Few /LPF (None Seen); SQUAMOUS EPITHELIAL CELL,UR Few /HPF (None Seen); WBC,URINE 0-2 /HPF (0-3)
[2017-09-16 17:35] LABS: CALCIUM, SERUM 9.7 mg/dL (8.5-10.1); POTASSIUM 3.2 mmol/L (3.5-5.1)
[2017-09-16 17:50] LABS: ALBUMIN 4.6 g/dL (3.4-5.0); BILIRUBIN,DIRECT 0.2 mg/dL (0.0-0.2); BILIRUBIN,TOTAL 0.8 mg/dL (0.2-1.0); SALICYLATE 5.3 mg/dL (2.8-20.0); TOTAL PROTEIN, SERUM 8.9 g/dL (6.4-8.2)
--- NOTE | 2017-09-16 18:46 | NUR ---
CALLED RAIN CRISIS COMPOUND MIXER ETA OF B1HR WAS GIVEN.
--- NOTE | 2017-09-16 19:45 | NUR ---
ASSUMED CARE OF PT
--- NOTE | 2017-09-16 19:45 | NUR ---
PT WENT OUTSIDE TO SMOKE. PT REC'D WATER AND TOLERATED PO WELL.
--- NOTE | 2017-09-16 22:50 | NUR ---
PT APPEARS TO BE RESTING COMFORTABLY WITH NO S/S OF PAIN OR DISTRESS.
--- NOTE | 2017-09-17 00:44 | NUR ---
PT IS RESTING COMFORTABLY WITH NO S/S OF PAIN OR DISTRESS. PT IS DRINKING WATER AND TOLERATING PO WELL.
--- NOTE | 2017-09-17 02:01 | NUR ---
CALLING LAB RE: ALCOHOL REDRAW.
--- NOTE | 2017-09-17 06:31 | NUR ---
BREAKFAST TRAY ORDERED.
--- NOTE | 2017-09-17 07:06 | NUR ---
CALLED JOY AT [facility] FOR UPDATES. STATES "BED IS STILL AVAILABLE WHENEVER THE ALCOHOL LEVEL IS BELOW 100".
--- NOTE | 2017-09-17 07:10 | NUR ---
REPORT GIVEN TO BERNARDION SULLIVAN FOR MELBA.
--- NOTE | 2017-09-17 07:11 | NUR ---
RECEIVED REPORT FROM IESHA NIÑO FOR MELBA.
[2017-09-17 10:00] VITALS: BP 139/88
[2017-09-17] MEDS ORDERED: MAG HYDROX/AL HYDROX/SIMETH 30 ML UDC ONE (10:23)
[2017-09-17] MEDS ORDERED: MAG HYDROX/AL HYDROX/SIMETH 30 ML UDC PO ONE (10:30)
--- NOTE | 2017-09-17 10:40 | NUR ---
PATIENT STATING HE WANTS TO GO OUTSIDE TO SMOKE. PATIENT INFORMED HE IS NOT ALLOWED TO GO OUTSIDE WHILE UNDER OBSERVATION. PATIENT STATED, IF I CANT GO OUT FOR A SMOKE, THEN IM JUST GOING TO LEAVE. PATIENT ENCOURAGED TO STAY AND COMPLETE THE TREATMENT, BUT PATIENT REFUSED AND WALKED OUT OF HOSPITAL.
== END 2017-09-17 10:40 | disposition left against medical advice (07) ==
LOC: ER 16:32
DX: R45.851 Suicidal ideations (principal); F10.10 Alcohol abuse, uncomplicated; F32.9 Major depressive disorder, single episode, unspecified; F20.9 Schizophrenia, unspecified; F17.200 Nicotine dependence, unspecified, uncomplicated; Z60.2 Problems related to living alone
CPT/HCPCS: 36415 ×2; 80048; 80076; 80305; 80329; 81001; 85025; 99284; A4606; G0480 ×4; Z7610; 81000-TC

== ENCOUNTER 2017-12-12 23:56 | Emergency (ER) | payer OTHER ==
[~2017-12-12] VITALS: Ht 175.3 cm; Wt 72.1 kg
[2017-12-13 00:04] VITALS: BP 152/88
--- NOTE | 2017-12-13 00:05 | NUR ---
PT TO ER REQUESTING MEDICAL CLEARANCE FOR [facility] VOLUNTARY. PT STATES SUICIDAL IDEATION. PLAN TO DROWN SELF. NO IMMEDIATE SIGNS OF DISTRESS NOTED. PT VITAL SIGNS STABLE. PT APPEARS INTOXICATED UPON ARRIVAL. PT TO ER BED. SI PRECAUTIONS IMPLEMENTED. WILL CONT TO MONITOR PT.
--- NOTE | 2017-12-13 01:30 | NUR ---
RAIN RN AT BEDSIDE FOR CRISIS EVAL.
[2017-12-13 02:50] LABS: EOSINOPHILS % (AUTO) 7.9 % (0.0-6.0); HEMATOCRIT 47 % (39-51); HEMOGLOBIN 14.9 g/dL (13.5-17.5); LYMPHOCYTES # (AUTO) 3.7 /CMM (0.8-4.8); LYMPHOCYTES % (AUTO) 58.2 % (20.0-44.0); MEAN CORPUSCULAR HEMOGLOBIN 32 PG (26.0-33.0); MEAN CORPUSCULAR HGB CONC 32 g/dl (31.0-36.0); MEAN CORPUSCULAR VOLUME 101 fL (80-96); MONOCYTES # (AUTO) 0.5 /CMM (0.1-1.30); MONOCYTES % (AUTO) 7.6 % (2.0-12.0); NEUTROPHILS # (AUTO) 1.7 /CMM (1.8-8.9); NEUTROPHILS % (AUTO) 26.3 % (43.0-81.0); PLATELET COUNT (AUTO) 301 /CMM (150-450); RDW COEFFICIENT OF VARIATION 16.9 (11.5-15.0); RED BLOOD CELL COUNT(AUTO) 4.61 MIL/uL (4.5-6.0); WHITE BLOOD COUNT (AUTO) 6.3 K/uL (4.3-11.0)
[2017-12-13 02:55] LABS: APPEARANCE,URINE CLEAR (CLEAR); BILIRUBIN,URINE NEGATIVE (NEGATIVE); BLOOD, URINE 1+ Ery/uL (NEGATIVE); COLOR,URINE YELLOW (YELLOW); KETONES,URINE NEGATIVE (NEGATIVE); LEUKOCYTE ESTERASE ,URINE NEGATIVE (NEGATIVE); NITRITE, URINE NEGATIVE (NEGATIVE); PH,URINE 5.5 (5.0-8.0); PROTEIN,URINE TRACE mg/dl (NEGATIVE); UGLUCOSE NEGATIVE (NEGATIVE); UROBILINOGEN,URINE 0.2 EU/dL (0.2)
[2017-12-13 03:08] LABS: CALCIUM, SERUM 8.5 mg/dL (8.5-10.1); CARBON DIOXIDE 24 mmol/L (21-32); CHLORIDE 104 mmol/L (98-107); CREATININE 0.8 mg/dL (0.6-1.3); GLUCOSE 90 mg/dL (74-106); POTASSIUM 3.8 mmol/L (3.5-5.1); SODIUM SERUM 142 mmol/L (136-145); UREA NITROGEN, BLOOD 10 mg/dL (7-18)
[2017-12-13 03:14] LABS: ALANINE AMINOTRANSFERASE 20 U/L (12-78); ALCOHOL, BLOOD 255 mg/dL (0-0); ALKALINE PHOSPHATASE 69 U/L (46-116); ASPARTATE AMINOTRANSFERASE 22 U/L (15-37); BILIRUBIN,DIRECT 0.1 mg/dL (0.0-0.2); BILIRUBIN,TOTAL 0.1 mg/dL (0.2-1.0); SALICYLATE 4.8 mg/dL (2.8-20.0); TOTAL PROTEIN, SERUM 8.2 g/dL (6.4-8.2)
[2017-12-13 03:15] LABS: ACETAMINOPHEN < 2 ug/ml (10-30)
[2017-12-13 03:24] LABS: BACTERIA,URINE None seen /HPF (None Seen); MUCUS,URINE Few /LPF (None Seen); SQUAMOUS EPITHELIAL CELL,UR Few /HPF (None Seen); URIC ACID CRYSTALS,URINE Many /HPF (None Seen); WBC,URINE 0-2 /HPF (0-3)
[2017-12-13 04:22] LABS: BAND % (MANUAL) 1 % (0.0-5.0); EOSINOPHILS % (MANUAL) 8 % (0-4); LYMPHOCYTES % (MANUAL) 67 % (16-48); MONOCYTES % (MANUAL) 3 % (0-11.0); NEUTROPHILS % (MANUAL) 20 (42-76); REACTIVE LYMPHOCYTES 1 % (0-0)
--- NOTE | 2017-12-13 09:20 | NUR ---
ALCOHOL LEVEL BACK,147, [facility] CALLED, NEED TO BE BELOW [address] XANDER PATIENT AND DR SANDHU AWARE
--- NOTE | 2017-12-13 14:02 | NUR ---
[facility] called ETA 1500. #[phone]
== END 2017-12-17 11:02 ==
LOC: ER 12-13 00:02
DX: F31.9 Bipolar disorder, unspecified (principal); F19.10 Other psychoactive substance abuse, uncomplicated; R45.851 Suicidal ideations; F12.10 Cannabis abuse, uncomplicated; I10 Essential (primary) hypertension; F20.9 Schizophrenia, unspecified; F17.200 Nicotine dependence, unspecified, uncomplicated; F10.10 Alcohol abuse, uncomplicated; Y90.8 Blood alcohol level of 240 mg/100 ml or more; Z60.2 Problems related to living alone
CPT/HCPCS: 36415; 80048-TC; 80076-TC; 80305; 81000-TC; 85025-TC; A4606; G0480; Z7610

== ENCOUNTER 2017-12-20 01:15 | Emergency (ER) | payer OTHER ==
[~2017-12-20] VITALS: Ht 175.3 cm; Wt 75.7 kg
--- NOTE | 2017-12-20 01:15 | NUR ---
BBSELF FROM STREETS C/C SUICIDAL IDEATIONS W/ PLAN TO JUMP INFRONT OF TRAFFIC. -HI NECK PAIN. VSS NO ACUTE DISTRESS NOTED AT THIS TIME. PATIENT IS ALERT AND ORIENTED X3 ABLE TO MAKE NEEDS KNOWN. WILL CONTINUE TO MONITOR FOR ANY CHANGES DURING THE SHIFT.
--- NOTE | 2017-12-20 01:16 | NUR ---
ER MD AVILEZ AT BEDSIDE FOR EVAL
--- NOTE | 2017-12-20 02:22 | NUR ---
BLOOD/URINE SENT TO LAB
[2017-12-20 02:34] LABS: BASOPHILS % (AUTO) 0.3 % (0.0-2.0); EOSINOPHILS % (AUTO) 3.4 % (0.0-6.0); HEMATOCRIT 49 % (39-51); HEMOGLOBIN 16.3 g/dL (13.5-17.5); LYMPHOCYTES # (AUTO) 2.2 /CMM (0.8-4.8); MEAN CORPUSCULAR HEMOGLOBIN 33 PG (26.0-33.0); MEAN CORPUSCULAR HGB CONC 33 g/dl (31.0-36.0); MEAN CORPUSCULAR VOLUME 98 fL (80-96); MONOCYTES # (AUTO) 0.6 /CMM (0.1-1.30); MONOCYTES % (AUTO) 8.9 % (2.0-12.0); NEUTROPHILS % (AUTO) 56.4 % (43.0-81.0); PLATELET COUNT (AUTO) 211 /CMM (150-450); RDW COEFFICIENT OF VARIATION 16.2 (11.5-15.0); RED BLOOD CELL COUNT(AUTO) 4.99 MIL/uL (4.5-6.0); WHITE BLOOD COUNT (AUTO) 7.2 K/uL (4.3-11.0)
[2017-12-20 02:37] LABS: CARBON DIOXIDE 26 mmol/L (21-32); CHLORIDE 101 mmol/L (98-107); GLUCOSE 106 mg/dL (74-106); SODIUM SERUM 140 mmol/L (136-145); UREA NITROGEN, BLOOD 17 mg/dL (7-18)
[2017-12-20 02:47] LABS: ALANINE AMINOTRANSFERASE 61 U/L (12-78); ALBUMIN 4.3 g/dL (3.4-5.0); ALCOHOL, BLOOD 256 mg/dL (0-0); ALKALINE PHOSPHATASE 81 U/L (46-116); ASPARTATE AMINOTRANSFERASE 75 U/L (15-37); BILIRUBIN,DIRECT 0.1 mg/dL (0.0-0.2); BILIRUBIN,TOTAL 0.2 mg/dL (0.2-1.0); SALICYLATE 3.9 mg/dL (2.8-20.0); TOTAL PROTEIN, SERUM 8.6 g/dL (6.4-8.2)
[2017-12-20 02:50] LABS: LYMPHOCYTES % (MANUAL) 48 % (16-48); MONOCYTES % (MANUAL) 8 % (0-11.0); NEUTROPHILS % (MANUAL) 43 (42-76)
[2017-12-20 02:51] LABS: EOSINOPHILS % (MANUAL) 1 % (0-4)
--- NOTE | 2017-12-20 02:52 | NUR ---
ART AT BEDSIDE FOR PSYCH EVAL
[2017-12-20 03:09] LABS: ACETAMINOPHEN < 10 ug/ml (10-30)
--- NOTE | 2017-12-20 04:28 | NUR ---
PT RESTING COMFORTABLY IN BED. WILL CONTINUE TO MONITOR FOR ANY CHANGES DURING THE SHIFT.
--- NOTE | 2017-12-20 06:39 | NUR ---
PT IS COMFORTABLY SLEEPING IN BED
--- NOTE | 2017-12-20 08:05 | NUR ---
Patient discharged to home in stable condition. Written and verbal after care instructions given. Patient verbalizes understanding of instruction.
[2017-12-20 08:10] VITALS: BP 131/77
== END 2017-12-20 08:10 | disposition home or self-care (01) ==
LOC: ER 01:16
DX: F32.9 Major depressive disorder, single episode, unspecified (principal); F10.129 Alcohol abuse with intoxication, unspecified; I10 Essential (primary) hypertension; F20.9 Schizophrenia, unspecified; F17.200 Nicotine dependence, unspecified, uncomplicated; F12.10 Cannabis abuse, uncomplicated; Y90.8 Blood alcohol level of 240 mg/100 ml or more; Z60.2 Problems related to living alone; Z71.6 Tobacco abuse counseling; Z59.0 Homelessness
CPT/HCPCS: 36415; 80048; 80076; 80305; 80329; 85025; 99284; 99406; A4606; G0480 ×2; Z7610

== ENCOUNTER → 2018-01-11 | Emergency (ER) | payer OTHER ==
[~2018-01-11] VITALS: Ht 175.3 cm; Wt 74.4 kg
--- NOTE | 2018-01-11 03:15 | NUR ---
TO BED 13 AMBULATORY C/O MED REFILL AND +SI WITH PLAN OF "JUMPING IN THE WATER". PT CALM AND COOPERATIVE AT THIS TIME. URINE SAMPLE COLLECTED AND SENT TO LAB. PT AAOX4 NO ACUTE DISTRESS NOTED, RESP EVEN AND UNLABORED. PENDING ER MD TABOR.
--- NOTE | 2018-01-11 03:16 | NUR ---
PRASANTH MARTINEZ AT BEDSIDE TO SHARONA HANNA.
--- NOTE | 2018-01-11 03:46 | NUR ---
CREW MESS ATTENDANT AT BEDSIDE FOR BLOOD DRAW.
[2018-01-11 04:08] LABS: BASOPHILS % (AUTO) 0.4 % (0.0-2.0); CALCIUM, SERUM 8.3 mg/dL (8.5-10.1); CARBON DIOXIDE 26 mmol/L (21-32); CHLORIDE 107 mmol/L (98-107); CREATININE 1.2 mg/dL (0.6-1.3); EOSINOPHILS % (AUTO) 6.9 % (0.0-6.0); GLUCOSE 142 mg/dL (74-106); HEMATOCRIT 38 % (39-51); HEMOGLOBIN 12.3 g/dL (13.5-17.5); LYMPHOCYTES # (AUTO) 2.3 /CMM (0.8-4.8); MEAN CORPUSCULAR HGB CONC 33 g/dl (31.0-36.0); MEAN CORPUSCULAR VOLUME 98 fL (80-96); MONOCYTES # (AUTO) 0.7 /CMM (0.1-1.30); MONOCYTES % (AUTO) 8.3 % (2.0-12.0); NEUTROPHILS # (AUTO) 4.8 /CMM (1.8-8.9); NEUTROPHILS % (AUTO) 57.4 % (43.0-81.0); PLATELET COUNT (AUTO) 342 /CMM (150-450); POTASSIUM 4.1 mmol/L (3.5-5.1); RDW COEFFICIENT OF VARIATION 15.8 (11.5-15.0); RED BLOOD CELL COUNT(AUTO) 3.84 MIL/uL (4.5-6.0); SODIUM SERUM 143 mmol/L (136-145); UREA NITROGEN, BLOOD 19 mg/dL (7-18); WHITE BLOOD COUNT (AUTO) 8.4 K/uL (4.3-11.0)
[2018-01-11 04:14] LABS: ALANINE AMINOTRANSFERASE 18 U/L (12-78); ALBUMIN 3.3 g/dL (3.4-5.0); ALKALINE PHOSPHATASE 100 U/L (46-116); ASPARTATE AMINOTRANSFERASE 17 U/L (15-37); BILIRUBIN,TOTAL 0.1 mg/dL (0.2-1.0); TOTAL PROTEIN, SERUM 6.9 g/dL (6.4-8.2)
[2018-01-11 04:17] LABS: ALCOHOL, BLOOD < 3 mg/dL (0-0)
[2018-01-11 04:19] LABS: APPEARANCE,URINE CLEAR (CLEAR); BILIRUBIN,URINE NEGATIVE (NEGATIVE); BLOOD, URINE TRACE-INTA Ery/uL (NEGATIVE); COLOR,URINE YELLOW (YELLOW); KETONES,URINE NEGATIVE (NEGATIVE); LEUKOCYTE ESTERASE ,URINE NEGATIVE (NEGATIVE); NITRITE, URINE NEGATIVE (NEGATIVE); PH,URINE 6.5 (5.0-8.0); PROTEIN,URINE NEGATIVE (NEGATIVE); UGLUCOSE NEGATIVE (NEGATIVE); UROBILINOGEN,URINE 0.2 EU/dL (0.2)
--- NOTE | 2018-01-11 04:32 | NUR ---
PT ASLEEP, NO ACUTE DISTRESS NOTED, RESP EVEN AND UNLABORED. CALL LIGHT WITHIN REACH. WILL CONTINUE TO MONITOR PT CLOSELY.
[2018-01-11 04:46] LABS: BACTERIA,URINE None seen /HPF (None Seen); RBC,URINE 0-2 /HPF (0-2); SQUAMOUS EPITHELIAL CELL,UR Few /HPF (None Seen); WBC,URINE 0-2 /HPF (0-3)
--- NOTE | 2018-01-11 06:13 | NUR ---
PT ASLEEP, NO ACUTE DISTRESS NOTED, RESP EVEN AND UNLABORED. CALL LIGHT WITHIN REACH. WILL CONTINUE TO MONITOR PT CLOSELY.
--- NOTE | 2018-01-11 08:30 | NUR ---
Pt found in supine position sleeping. Easily arousable. Vital signs taken. No respiratory distress. HR st 105. Pt alert and oriented. Requested to eat. Dr. Barrientos notified vital signs. Order obtained diet order and followed up with dietary dept. Notified pt breakfast is on the way. Continue to monitor pt.
--- NOTE | 2018-01-11 09:40 | NUR ---
PT SINCE BY MATERIALS SPECIALIST WILL VOLUNTEER TO GO TO [facility]
--- NOTE | 2018-01-11 10:36 | NUR ---
CALLED [facility] SPOKE WITH BERNARDINO EVANS REPORT GIVEN EXT [phone]
[2018-01-11 11:10] VITALS: BP 152/91
== END | disposition home or self-care (01) ==
LOC: ER 03:08
DX: R45.851 Suicidal ideations (principal); R44.0 Auditory hallucinations; I10 Essential (primary) hypertension; F31.9 Bipolar disorder, unspecified; F10.10 Alcohol abuse, uncomplicated; F17.200 Nicotine dependence, unspecified, uncomplicated; F12.10 Cannabis abuse, uncomplicated; F13.20 Sedative, hypnotic or anxiolytic dependence, uncomplicated; Y90.9 Presence of alcohol in blood, level not specified; Z60.2 Problems related to living alone
CPT/HCPCS: 36415; 80048; 80076; 80305; 81001; 85025; 99284; A4606; G0480; Z7610; 81000-TC

== ENCOUNTER 2018-03-06 10:06 | Emergency (ER) | payer OTHER ==
[~2018-03-06] VITALS: Ht 167.6 cm; Wt 83.9 kg
[~2018-03-06 10:06] MED LIST changes: +HYDR-4384 PO; -HYDR-552 PO
[2018-03-06 11:00] LABS: BASOPHILS % (AUTO) 0.6 % (0.0-2.0); EOSINOPHILS % (AUTO) 5.7 % (0.0-6.0); HEMATOCRIT 45 % (39-51); HEMOGLOBIN 14.9 g/dL (13.5-17.5); LYMPHOCYTES # (AUTO) 1.6 /CMM (0.8-4.8); LYMPHOCYTES % (AUTO) 28.4 % (20.0-44.0); MEAN CORPUSCULAR HGB CONC 33 g/dl (31.0-36.0); MEAN CORPUSCULAR VOLUME 96 fL (80-96); MONOCYTES # (AUTO) 0.8 /CMM (0.1-1.30); MONOCYTES % (AUTO) 13.3 % (2.0-12.0); PLATELET COUNT (AUTO) 269 /CMM (150-450); RED BLOOD CELL COUNT(AUTO) 4.65 MIL/uL (4.5-6.0); WHITE BLOOD COUNT (AUTO) 5.7 K/uL (4.3-11.0)
[2018-03-06 11:10] LABS: CALCIUM, SERUM 8.9 mg/dL (8.5-10.1); CARBON DIOXIDE 27 mmol/L (21-32); CHLORIDE 103 mmol/L (98-107); CREATININE 1.2 mg/dL (0.6-1.3); GLUCOSE 106 mg/dL (74-106); SODIUM SERUM 141 mmol/L (136-145); UREA NITROGEN, BLOOD 25 mg/dL (7-18)
[2018-03-06 11:24] LABS: ALANINE AMINOTRANSFERASE 39 U/L (12-78); ALBUMIN 4.1 g/dL (3.4-5.0); ALCOHOL, BLOOD < 3 mg/dL (0-0); ALKALINE PHOSPHATASE 78 U/L (46-116); ASPARTATE AMINOTRANSFERASE 72 U/L (15-37); BILIRUBIN,TOTAL 0.6 mg/dL (0.2-1.0); SALICYLATE 2.8 mg/dL (2.8-20.0); TOTAL PROTEIN, SERUM 8.5 g/dL (6.4-8.2)
[2018-03-06 11:25] LABS: ACETAMINOPHEN 0 ug/ml (10-30)
[2018-03-06 11:37] LABS: BILIRUBIN,DIRECT 0.1 mg/dL (0.0-0.2)
--- NOTE | 2018-03-06 12:11 | NUR ---
52 Y/O MALE PLACED IN BED 15 C/O DEPRESSION
--- NOTE | 2018-03-06 12:30 | NUR ---
PT IS SLEEPING. PT WOKEN UP. PT STILL STATES THAT HE IS DEPRESSED, THEN FELL BACK ASLEEP.
--- NOTE | 2018-03-06 15:31 | NUR ---
PT BACK ASLEEP. ER OBSERVATION.
--- NOTE | 2018-03-06 16:26 | NUR ---
WAITING TO FIND OUT IF [facility] WILL TAKE THE PT.
--- NOTE | 2018-03-06 16:52 | NUR ---
AFTER EATING SOME FOOD, PT LESS STRESSED. BP DOWN. WAITING TO HERE FROM [facility]. WAITING FOR URINE RESULTS.
--- NOTE | 2018-03-06 17:06 | NUR ---
PT ADMITTED TO . AT [facility].
--- NOTE | 2018-03-06 17:06 | NUR ---
[facility] WILL BE PICKING PT UP AT 1800.
[2018-03-06 17:16] LABS: APPEARANCE,URINE SL CLOUDY (CLEAR); BILIRUBIN,URINE NEGATIVE (NEGATIVE); BLOOD, URINE TRACE Ery/uL (NEGATIVE); COLOR,URINE YELLOW (YELLOW); KETONES,URINE 1+ (NEGATIVE); LEUKOCYTE ESTERASE ,URINE NEGATIVE (NEGATIVE); NITRITE, URINE NEGATIVE (NEGATIVE); PROTEIN,URINE TRACE mg/dl (NEGATIVE); UGLUCOSE NEGATIVE (NEGATIVE)
[2018-03-06 17:39] LABS: BACTERIA,URINE None seen /HPF (None Seen); SQUAMOUS EPITHELIAL CELL,UR Rare /HPF (None Seen); WBC,URINE 0-2 /HPF (0-3)
[2018-03-06 18:27] VITALS: BP 130/91
--- NOTE | 2018-03-06 19:41 | NUR ---
NAIDA FROM [facility] PATIENT WILL BE TRANFERED TO [facility] ACCEPTED BY DR BEAN BAIG TO GIVE REPORT
--- NOTE | 2018-03-06 19:55 | NUR ---
REPORT GIVEN TO GHISLAINE. PT TRANSFERRED TO [place].
== END 2018-03-06 19:58 | disposition home or self-care (01) ==
LOC: ER 10:08
DX: R45.851 Suicidal ideations (principal); I10 Essential (primary) hypertension; F31.9 Bipolar disorder, unspecified; F20.9 Schizophrenia, unspecified; F10.10 Alcohol abuse, uncomplicated; F17.200 Nicotine dependence, unspecified, uncomplicated; F12.10 Cannabis abuse, uncomplicated; F13.10 Sedative, hypnotic or anxiolytic abuse, uncomplicated; F15.10 Other stimulant abuse, uncomplicated; Y90.0 Blood alcohol level of less than 20 mg/100 ml; Z60.2 Problems related to living alone
CPT/HCPCS: 36415; 80048-TC; 80076-TC; 80305; 81000-TC; 85025-TC; A4606; G0480; Z7610

== ENCOUNTER 2018-03-22 11:44 | Emergency (ER) | payer OTHER ==
[~2018-03-22] VITALS: Ht 175.3 cm; Wt 82.1 kg
--- NOTE | 2018-03-22 12:08 | NUR ---
BIB SELF, SI, " I WANT TO JUMP IN FRONT OF TRAFFIC ", -HI. +ETOH, NO OTHER COMPLAINTS, WILL CONTINUE TO CLOSELY MONITOR.
[2018-03-22 12:21] LABS: BASOPHILS # (AUTO) 0.1 /CMM (0.0-0.2); BASOPHILS % (AUTO) 0.8 % (0.0-2.0); EOSINOPHILS % (AUTO) 7.3 % (0.0-6.0); HEMATOCRIT 46 % (39-51); HEMOGLOBIN 15.6 g/dL (13.5-17.5); LYMPHOCYTES # (AUTO) 3.3 /CMM (0.8-4.8); MEAN CORPUSCULAR HGB CONC 34 g/dl (31.0-36.0); MEAN CORPUSCULAR VOLUME 96 fL (80-96); MONOCYTES # (AUTO) 0.3 /CMM (0.1-1.30); MONOCYTES % (AUTO) 5.1 % (2.0-12.0); NEUTROPHILS # (AUTO) 2.1 /CMM (1.8-8.9); NEUTROPHILS % (AUTO) 33.8 % (43.0-81.0); PLATELET COUNT (AUTO) 296 /CMM (150-450); RED BLOOD CELL COUNT(AUTO) 4.86 MIL/uL (4.5-6.0); WHITE BLOOD COUNT (AUTO) 6.2 K/uL (4.3-11.0)
[2018-03-22 12:28] LABS: CALCIUM, SERUM 8.3 mg/dL (8.5-10.1); CARBON DIOXIDE 27 mmol/L (21-32); CHLORIDE 107 mmol/L (98-107); CREATININE 0.9 mg/dL (0.6-1.3); GLUCOSE 99 mg/dL (74-106); POTASSIUM 3.5 mmol/L (3.5-5.1); SODIUM SERUM 145 mmol/L (136-145); UREA NITROGEN, BLOOD 8 mg/dL (7-18)
[2018-03-22 12:35] LABS: ALANINE AMINOTRANSFERASE 25 U/L (12-78); ALBUMIN 3.8 g/dL (3.4-5.0); ALCOHOL, BLOOD 341 mg/dL (0-0); ALKALINE PHOSPHATASE 70 U/L (46-116); ASPARTATE AMINOTRANSFERASE 26 U/L (15-37); BILIRUBIN,DIRECT 0.1 mg/dL (0.0-0.2); BILIRUBIN,TOTAL 0.2 mg/dL (0.2-1.0); SALICYLATE 3.8 mg/dL (2.8-20.0); TOTAL PROTEIN, SERUM 7.6 g/dL (6.4-8.2)
[2018-03-22 12:38] LABS: ACETAMINOPHEN < 2 ug/ml (10-30)
[2018-03-22 12:58] LABS: APPEARANCE,URINE Clear (CLEAR); BILIRUBIN,URINE Negative (NEGATIVE); BLOOD, URINE Trace-lysed Ery/uL (NEGATIVE); COLOR,URINE Yellow (YELLOW); KETONES,URINE Negative (NEGATIVE); LEUKOCYTE ESTERASE ,URINE Negative (NEGATIVE); NITRITE, URINE Negative (NEGATIVE); PH,URINE 5.5 (5.0-8.0); PROTEIN,URINE Negative (NEGATIVE); UGLUCOSE Negative (NEGATIVE); UROBILINOGEN,URINE 0.2 EU/dL (0.2)
[2018-03-22 13:01] LABS: BACTERIA,URINE Few /HPF (None Seen); SQUAMOUS EPITHELIAL CELL,UR Few /HPF (None Seen); WBC,URINE 0-2 /HPF (0-3)
--- NOTE | 2018-03-22 14:15 | NUR ---
PATIENT RESTING AT THIS TIME. NO DISTRESS NOTED. VSS. WILL CONTINUE TO MONITOR.
--- NOTE | 2018-03-22 19:15 | NUR ---
ENDORSED TO APOLINAR LEBRON FOR MELBA.
--- NOTE | 2018-03-22 19:27 | NUR ---
REC'D REPORT FROM BERNARDINO DAVIS FOR MELBA
--- NOTE | 2018-03-22 19:55 | NUR ---
RESTING COMFORTABLY WATCHING TV. PROVIDED JUICE. VSS.
--- NOTE | 2018-03-22 22:05 | NUR ---
Patient is resting comfortably in bed WATCHING TV AND EATING. VSS
--- NOTE | 2018-03-22 23:13 | NUR ---
Patient is resting comfortably in bed with eyes closed. PROVIDED BLANKET FOR COMFORT. Easily aroused. VSS
--- NOTE | 2018-03-23 01:13 | NUR ---
PT STILL SLEEPING. EASILY AROUSED, VSS
--- NOTE | 2018-03-23 02:30 | NUR ---
PT OUT OF BED TO STRETCH LEGS. VSS.
--- NOTE | 2018-03-23 04:15 | NUR ---
PT WAS FOUND WITH A BOTTLE OF ALCOHOL AT BEDSIDE. BOTTLE CONFISCATED, NOTIFIED
--- NOTE | 2018-03-23 05:17 | NUR ---
Patient is resting comfortably in bed with eyes closed. Easily aroused. VSS
--- NOTE | 2018-03-23 06:53 | NUR ---
Patient is resting comfortably in bed with eyes closed. Easily aroused. VSS
--- NOTE | 2018-03-23 07:28 | NUR ---
ENDORSEMENT GIVEN TO BERNARDINO GONZALEZ FOR MELBA
--- NOTE | 2018-03-23 07:29 | NUR ---
RECEIVED REPORT FOR RN JACQUELYN, PT IS AOX4, NOT IN RESPIRATORY DISTRESS, KEPT RESTED AND COMFORTABLE, WILL CONTINUE TO MONITOR.
--- NOTE | 2018-03-23 07:35 | NUR ---
PT BP IS ELAVATED 198/[address] MCCARTNEY.
[2018-03-23] MEDS ORDERED: AMLODIPINE BESYLATE 5 MG TABLET ONE (07:44)
[2018-03-23] MEDS ORDERED: AMLODIPINE BESYLATE 5 MG TABLET PO ONE (08:00)
--- NOTE | 2018-03-23 08:30 | NUR ---
RECHECKED BP 145/[address] MCCARTNEY AND ADVISED TO REDRAW BLOOD ALCOHOL AT 1000H.
[2018-03-23 10:02] VITALS: BP 142/97
--- NOTE | 2018-03-23 12:51 | NUR ---
Patient is resting comfortably in bed with eyes closed. Easily aroused. VSS
--- NOTE | 2018-03-23 13:50 | NUR ---
PT ACCEPTED TO [facility].
--- NOTE | 2018-03-23 14:03 | NUR ---
CALLED [facility] FOR S TRANSPORT TO [facility] ETA [phone]
--- NOTE | 2018-03-23 14:59 | NUR ---
REPORT GIVEN TO CAROLINE [place] [facility] AWARE OF BLOOD ALCOHOL LEVEL OF 70.
--- NOTE | 2018-03-23 15:08 | NUR ---
PT TRANSFERRED TO [facility] VIA GURNEY WITH 2EMTS, PT IN STABLE CONDITION. SBP OF 162,PT ASYMPTOMATIC, DENIES ANY DIZZINESS. NO N/V NOTED, DR. FUNK AWARE, PER MD, PT IS SAFE FOR TRANSFER TO [facility]
== END 2018-03-23 15:11 ==
LOC: ER 11:56
DX: R45.851 Suicidal ideations (principal); I10 Essential (primary) hypertension; F31.9 Bipolar disorder, unspecified; F20.9 Schizophrenia, unspecified; F10.10 Alcohol abuse, uncomplicated; F17.200 Nicotine dependence, unspecified, uncomplicated; F12.10 Cannabis abuse, uncomplicated; F13.10 Sedative, hypnotic or anxiolytic abuse, uncomplicated; Y90.8 Blood alcohol level of 240 mg/100 ml or more; Z60.2 Problems related to living alone
CPT/HCPCS: 36415 ×2; 80048; 80076; 80305; 80329; 81001; 85025; 99285; A4606; G0480 ×6; Z7610; 81000-TC

== ENCOUNTER 2018-07-01 14:00 | Emergency (ER) | payer OTHER ==
[~2018-07-01] VITALS: Ht 175.3 cm; Wt 83.9 kg
[2018-07-01 15:30] LABS: BASOPHILS % (AUTO) 0.6 % (0.0-2.0); EOSINOPHILS % (AUTO) 0.2 % (0.0-6.0); HEMATOCRIT 49 % (39-51); HEMOGLOBIN 16.1 g/dL (13.5-17.5); LYMPHOCYTES # (AUTO) 2.2 /CMM (0.8-4.8); LYMPHOCYTES % (AUTO) 36.3 % (20.0-44.0); MEAN CORPUSCULAR HGB CONC 33 g/dl (31.0-36.0); MEAN CORPUSCULAR VOLUME 97 fL (80-96); MONOCYTES # (AUTO) 0.2 /CMM (0.1-1.30); MONOCYTES % (AUTO) 3.9 % (2.0-12.0); NEUTROPHILS # (AUTO) 3.6 /CMM (1.8-8.9); PLATELET COUNT (AUTO) 361 /CMM (150-450); RED BLOOD CELL COUNT(AUTO) 5.07 MIL/uL (4.5-6.0); WHITE BLOOD COUNT (AUTO) 6.1 K/uL (4.3-11.0)
--- NOTE | 2018-07-01 15:31 | NUR ---
SUICIDAL "I WANT TO RUN INTO TRAFFIC TO KILL MYSELF", -HI, +ETOH. PT IS AMBULATORY, VSS, RR EVEN AND UNLABORED. NO OTHER COMPLAINTS AT THIS TIME. SKIN INTACT, NO ACUTE DISTRESS NOTED. SUICIDE PRECAUTIONS IMPLEMENTED. READY FOR EVAL.
[2018-07-01 15:34] LABS: APPEARANCE,URINE Slightly Cloudy (CLEAR); BILIRUBIN,URINE Negative (NEGATIVE); BLOOD, URINE Small Ery/uL (NEGATIVE); COLOR,URINE Yellow (YELLOW); KETONES,URINE 80 (NEGATIVE); LEUKOCYTE ESTERASE ,URINE Negative (NEGATIVE); NITRITE, URINE Negative (NEGATIVE); PROTEIN,URINE 30 mg/dl (NEGATIVE); UGLUCOSE Negative (NEGATIVE); UROBILINOGEN,URINE 0.2 EU/dL (0.2)
[2018-07-01 15:44] LABS: BACTERIA,URINE Few /HPF (None Seen); SQUAMOUS EPITHELIAL CELL,UR Few /HPF (None Seen); WBC,URINE 0-2 /HPF (0-3)
[2018-07-01 15:45] LABS: CALCIUM, SERUM 9.3 mg/dL (8.5-10.1); CREATININE 1.1 mg/dL (0.6-1.3); POTASSIUM 3.9 mmol/L (3.5-5.1)
[2018-07-01 15:53] LABS: ALBUMIN 4.6 g/dL (3.4-5.0); BILIRUBIN,DIRECT 0.1 mg/dL (0.0-0.2); BILIRUBIN,TOTAL 0.3 mg/dL (0.2-1.0); TOTAL PROTEIN, SERUM 8.7 g/dL (6.4-8.2)
--- NOTE | 2018-07-01 17:31 | NUR ---
CALLED PINK[facility] REGARDING EVAL FOR THIS PATIENT
--- NOTE | 2018-07-01 18:52 | NUR ---
CALLED DIETARY FOR FOOD TRAY
--- NOTE | 2018-07-01 19:04 | NUR ---
PT PROVIDED MEAL TRAY
--- NOTE | 2018-07-01 19:14 | NUR ---
PINKY AT BEDSIDE FOR EVAL.
--- NOTE | 2018-07-01 21:03 | NUR ---
Patient is resting comfortably in bed with eyes closed. Easily aroused. VSS
--- NOTE | 2018-07-01 23:30 | NUR ---
Patient is SLEEPING comfortably in bed with eyes closed. Easily aroused. VSS. NO COMPLAINTS AT THIS TIME
--- NOTE | 2018-07-01 23:33 | NUR ---
Patient is resting comfortably in bed with eyes closed. Easily aroused. VSS
--- NOTE | 2018-07-02 02:08 | NUR ---
RECEIVED CALL FROM MARIS AT [facility]. PT IS ACCEPTED. DR. ECHOLS RN TO RN REPORT: EXT: [phone] PT WILL BE TRANSFERED TO [facility]
--- NOTE | 2018-07-02 02:17 | NUR ---
CALLED [facility] FOR S TRANSPORT TO [facility] ETA: 30-40 MIN RUN #:[id number]
[2018-07-02 02:45] VITALS: BP 140/76
--- NOTE | 2018-07-02 02:48 | NUR ---
REPORT GIVEN TO EMS AMBULNZ CREW FOR MELBA.
--- NOTE | 2018-07-02 02:48 | NUR ---
REPORT GIVEN TO BERNARDINO ADAMES AT [facility] FOR MELBA.
--- NOTE | 2018-07-02 02:48 | NUR ---
Patient Tranfers to outside Facility Physician:MARY Location:[facility]
== END 2018-07-02 02:58 ==
LOC: ER 14:00
DX: R45.851 Suicidal ideations (principal); F10.10 Alcohol abuse, uncomplicated; F12.10 Cannabis abuse, uncomplicated; Z60.2 Problems related to living alone; Z79.899 Other long term (current) drug therapy; Y90.7 Blood alcohol level of 200-239 mg/100 ml
CPT/HCPCS: 36415 ×2; 80048; 80076; 80305; 80307 ×3; 80329; 81001; 85025; 99285; G0480; 81000-TC

== ENCOUNTER 2018-07-19 00:36 | Emergency (ER) | payer OTHER ==
[~2018-07-19] VITALS: Ht 175.3 cm; Wt 79.4 kg
--- NOTE | 2018-07-19 00:44 | NUR ---
PT BIBS. C/O "IM HAVING SUICIDAL IDEATION" -SOB -DIZZY AOX4. AMBULATORY W.STEADY GAIT.
[2018-07-19 03:01] LABS: BASOPHILS # (AUTO) 0.1 /CMM (0.0-0.2); BASOPHILS % (AUTO) 0.7 % (0.0-2.0); EOSINOPHILS % (AUTO) 3.4 % (0.0-6.0); HEMATOCRIT 43 % (39-51); HEMOGLOBIN 14.4 g/dL (13.5-17.5); LYMPHOCYTES # (AUTO) 2.4 /CMM (0.8-4.8); MEAN CORPUSCULAR HGB CONC 34 g/dl (31.0-36.0); MEAN CORPUSCULAR VOLUME 95 fL (80-96); MONOCYTES # (AUTO) 0.2 /CMM (0.1-1.30); MONOCYTES % (AUTO) 3.2 % (2.0-12.0); NEUTROPHILS # (AUTO) 4.3 /CMM (1.8-8.9); NEUTROPHILS % (AUTO) 59.7 % (43.0-81.0); PLATELET COUNT (AUTO) 226 /CMM (150-450); RED BLOOD CELL COUNT(AUTO) 4.51 MIL/uL (4.5-6.0); WHITE BLOOD COUNT (AUTO) 7.2 K/uL (4.3-11.0)
[2018-07-19 03:09] LABS: BILIRUBIN,DIRECT 0.1 mg/dL (0.0-0.2); BILIRUBIN,TOTAL 0.2 mg/dL (0.2-1.0); CALCIUM, SERUM 8.9 mg/dL (8.5-10.1); POTASSIUM 3.8 mmol/L (3.5-5.1); TOTAL PROTEIN, SERUM 7.7 g/dL (6.4-8.2)
--- NOTE | 2018-07-19 06:17 | NUR ---
Patient is resting comfortably in bed with eyes closed. Easily aroused. VSS
--- NOTE | 2018-07-19 06:17 | NUR ---
PT SEEN BY ANETA MILTON. [facility] FOR [facility]MISS[facility].
--- NOTE | 2018-07-19 06:44 | NUR ---
PT ACCEPTED TO [facility]. NUMBER FOR REPORT [phone]. ACCEPTING DR RDZ.
--- NOTE | 2018-07-19 06:49 | NUR ---
0745 AM PICKUP FROM [facility]. TRIP# [id number].
[2018-07-19 07:50] VITALS: BP 130/68
== END 2018-07-19 07:52 ==
LOC: ER 00:39
DX: F20.9 Schizophrenia, unspecified (principal); R45.851 Suicidal ideations; I10 Essential (primary) hypertension; F31.9 Bipolar disorder, unspecified; F41.9 Anxiety disorder, unspecified; F10.10 Alcohol abuse, uncomplicated; F17.200 Nicotine dependence, unspecified, uncomplicated; Y90.4 Blood alcohol level of 80-99 mg/100 ml; Z59.0 Homelessness
CPT/HCPCS: 36415; 80048; 80076; 80305; 80307; 80329; 85025; 99285; 99406; G0480

== ENCOUNTER 2018-07-25 01:41 | Emergency (ER) | payer OTHER ==
[~2018-07-25] VITALS: Ht 175.3 cm; Wt 80.3 kg
[2018-07-25 02:40] LABS: BASOPHILS % (AUTO) 0.5 % (0.0-2.0); EOSINOPHILS % (AUTO) 5.6 % (0.0-6.0); HEMATOCRIT 49 % (39-51); HEMOGLOBIN 16.6 g/dL (13.5-17.5); LYMPHOCYTES # (AUTO) 3.7 /CMM (0.8-4.8); LYMPHOCYTES % (AUTO) 49.5 % (20.0-44.0); MEAN CORPUSCULAR HGB CONC 34 g/dl (31.0-36.0); MEAN CORPUSCULAR VOLUME 95 fL (80-96); MONOCYTES # (AUTO) 0.5 /CMM (0.1-1.30); MONOCYTES % (AUTO) 7.1 % (2.0-12.0); NEUTROPHILS # (AUTO) 2.8 /CMM (1.8-8.9); NEUTROPHILS % (AUTO) 37.3 % (43.0-81.0); PLATELET COUNT (AUTO) 273 /CMM (150-450); RED BLOOD CELL COUNT(AUTO) 5.16 MIL/uL (4.5-6.0); WHITE BLOOD COUNT (AUTO) 7.4 K/uL (4.3-11.0)
[2018-07-25 02:43] LABS: CALCIUM, SERUM 9.1 mg/dL (8.5-10.1); CREATININE 1.1 mg/dL (0.6-1.3); POTASSIUM 4.3 mmol/L (3.5-5.1)
[2018-07-25 02:48] LABS: ALBUMIN 4.6 g/dL (3.4-5.0); BILIRUBIN,DIRECT 0.1 mg/dL (0.0-0.2); BILIRUBIN,TOTAL 0.2 mg/dL (0.2-1.0); SALICYLATE 3.2 mg/dL (2.8-20.0); TOTAL PROTEIN, SERUM 8.9 g/dL (6.4-8.2)
--- NOTE | 2018-07-25 02:48 | NUR ---
PT BIBS. C/O "HAVING SUICIDAL IDEATION" -HI AOX4. -ACUTE DISTRESS.
--- NOTE | 2018-07-25 07:11 | NUR ---
PT DENIES SUICIDAL IDEATION AT THIS TIME. AOX.4 WAITING FOR RETORT PRE [facility] AT 8AM.
[2018-07-25 07:12] VITALS: BP 133/77
--- NOTE | 2018-07-25 08:20 | NUR ---
IRAJ MILTON CALLED FOR ASSISTANCE REQUESTED BY PATIENT REGARDING ALF
== END 2018-07-25 07:15 | disposition home or self-care (01) ==
LOC: ER 01:41
DX: F32.9 Major depressive disorder, single episode, unspecified (principal); F10.20 Alcohol dependence, uncomplicated; F41.9 Anxiety disorder, unspecified; I10 Essential (primary) hypertension; F17.200 Nicotine dependence, unspecified, uncomplicated; Y90.8 Blood alcohol level of 240 mg/100 ml or more; Z71.6 Tobacco abuse counseling; Z59.0 Homelessness
CPT/HCPCS: 36415; 80048; 80076; 80305; 80307; 80329; 85025; 99284; 99406; G0480

== ENCOUNTER 2018-07-28 11:07 | Emergency (ER) | payer OTHER ==
[~2018-07-28] VITALS: Ht 175.3 cm; Wt 81.6 kg
--- NOTE | 2018-07-28 11:15 | NUR ---
PT PRESENTED TO THE ER WALKED IN HERE STATING, HE WANTS TO COME IN VOLUNTARILY TO A PSYCH FACILITY FOR SI BY JUMPING OVER A BRIDGE. ON ROOM AIR, BREATHING EVENLY AND UNLABORED. KEPT COMFORTABLE. WILL CONTINUE TO MONITOR ACCORDINGLY.
[2018-07-28 11:43] LABS: BASOPHILS % (AUTO) 0.7 % (0.0-2.0); EOSINOPHILS % (AUTO) 2.7 % (0.0-6.0); HEMATOCRIT 44 % (39-51); LYMPHOCYTES # (AUTO) 2.8 /CMM (0.8-4.8); LYMPHOCYTES % (AUTO) 38.6 % (20.0-44.0); MEAN CORPUSCULAR HGB CONC 35 g/dl (31.0-36.0); MEAN CORPUSCULAR VOLUME 94 fL (80-96); MONOCYTES # (AUTO) 0.6 /CMM (0.1-1.30); MONOCYTES % (AUTO) 7.6 % (2.0-12.0); NEUTROPHILS # (AUTO) 3.6 /CMM (1.8-8.9); NEUTROPHILS % (AUTO) 50.4 % (43.0-81.0); PLATELET COUNT (AUTO) 247 /CMM (150-450); RED BLOOD CELL COUNT(AUTO) 4.62 MIL/uL (4.5-6.0); WHITE BLOOD COUNT (AUTO) 7.2 K/uL (4.3-11.0)
[2018-07-28 11:52] LABS: CALCIUM, SERUM 8.6 mg/dL (8.5-10.1); CREATININE 0.9 mg/dL (0.6-1.3); POTASSIUM 3.7 mmol/L (3.5-5.1)
[2018-07-28 12:01] LABS: BILIRUBIN,DIRECT 0.1 mg/dL (0.0-0.2); BILIRUBIN,TOTAL 0.4 mg/dL (0.2-1.0); SALICYLATE 2.5 mg/dL (2.8-20.0)
[2018-07-28 12:16] LABS: APPEARANCE,URINE CLEAR (CLEAR); BILIRUBIN,URINE NEGATIVE (NEGATIVE); BLOOD, URINE 1+ Ery/uL (NEGATIVE); COLOR,URINE YELLOW (YELLOW); KETONES,URINE NEGATIVE (NEGATIVE); LEUKOCYTE ESTERASE ,URINE NEGATIVE (NEGATIVE); NITRITE, URINE NEGATIVE (NEGATIVE); PROTEIN,URINE 1+ mg/dl (NEGATIVE); UGLUCOSE NEGATIVE (NEGATIVE); UROBILINOGEN,URINE 0.2 EU/dL (0.2)
[2018-07-28 12:21] LABS: BACTERIA,URINE None seen /HPF (None Seen); RBC,URINE 0-2 /HPF (0-2); SQUAMOUS EPITHELIAL CELL,UR 0-2 /HPF (None Seen); WBC,URINE 0-2 /HPF (0-3)
--- NOTE | 2018-07-28 12:28 | NUR ---
FAXED ADMISSIONS PACKET TO [facility]
--- NOTE | 2018-07-28 15:45 | NUR ---
CALLED [facility] AND I WAS INFORMED THAT THE PT IS GOOD TO GO TO [facility]. ADMITTING DR IS DR NUNES. PLEASE CALL [phone] TO GIVE REPORT.
--- NOTE | 2018-07-28 15:52 | NUR ---
called [facility] and spoke to mena and said that her charge nurse is not available at the moment and she is not sure whos getting the admission. Awaiting for call back.
--- NOTE | 2018-07-28 16:06 | NUR ---
report given to ismael LEBRON from [facility] for [facility]vin.
[2018-07-28 16:15] VITALS: BP 139/79
--- NOTE | 2018-07-28 17:05 | NUR ---
[facility]ED [facility]. ETA IS 90 MIN. TRIP #[phone]
--- NOTE | 2018-07-28 17:34 | NUR ---
Patient eloped from facility. ER MD notified.
== END 2018-07-28 17:33 | disposition left against medical advice (07) ==
LOC: ER 11:13
DX: R45.851 Suicidal ideations (principal); F12.10 Cannabis abuse, uncomplicated; F10.10 Alcohol abuse, uncomplicated; I10 Essential (primary) hypertension; F31.9 Bipolar disorder, unspecified; F41.9 Anxiety disorder, unspecified; F17.200 Nicotine dependence, unspecified, uncomplicated; Y90.8 Blood alcohol level of 240 mg/100 ml or more; Z59.0 Homelessness
CPT/HCPCS: 36415; 80048; 80076; 80305; 80307; 80329; 81001; 85025; 99283; G0480; 81000-TC

== ENCOUNTER 2018-08-21 00:34 | Emergency (ER) | payer OTHER ==
[~2018-08-21] VITALS: Ht 175.3 cm; Wt 72.6 kg
--- NOTE | 2018-08-21 01:14 | NUR ---
CALLED PT TO BE TRIAGED, NO ANSWER
--- NOTE | 2018-08-21 01:58 | NUR ---
BIBSELF C/O SUICIDE IDEATION WITH PLAN TO RUN INTO TRAFFIC. DENIES HI OR HALLUCINATIONS. PT AAOX4. RESPIRATIONS EVEN AND UNLABORED. SKIN INTACT. VITAL SIGNS STABLE. NO ACUTE DISTRESS NOTED AT THIS TIME
--- NOTE | 2018-08-21 02:00 | NUR ---
URINE COLLECTED AND SENT TO LAB
[2018-08-21 02:20] LABS: APPEARANCE,URINE CLEAR (CLEAR); BILIRUBIN,URINE NEGATIVE (NEGATIVE); BLOOD, URINE TRACE Ery/uL (NEGATIVE); COLOR,URINE YELLOW (YELLOW); KETONES,URINE NEGATIVE (NEGATIVE); LEUKOCYTE ESTERASE ,URINE NEGATIVE (NEGATIVE); NITRITE, URINE NEGATIVE (NEGATIVE); PROTEIN,URINE TRACE mg/dl (NEGATIVE); UGLUCOSE NEGATIVE (NEGATIVE); UROBILINOGEN,URINE 0.2 EU/dL (0.2)
[2018-08-21 02:30] LABS: BACTERIA,URINE Few /HPF (None Seen); RBC,URINE 0-2 /HPF (0-2); SPERM,URINE Moderate /HPF (None Seen); SQUAMOUS EPITHELIAL CELL,UR Rare /HPF (None Seen); WBC,URINE 0-2 /HPF (0-3)
[2018-08-21 02:36] LABS: BASOPHILS % (AUTO) 0.7 % (0.0-2.0); EOSINOPHILS % (AUTO) 4.1 % (0.0-6.0); HEMATOCRIT 40 % (39-51); HEMOGLOBIN 13.7 g/dL (13.5-17.5); LYMPHOCYTES # (AUTO) 3.3 /CMM (0.8-4.8); LYMPHOCYTES % (AUTO) 51.4 % (20.0-44.0); MEAN CORPUSCULAR HGB CONC 34 g/dl (31.0-36.0); MEAN CORPUSCULAR VOLUME 98 fL (80-96); MONOCYTES # (AUTO) 0.6 /CMM (0.1-1.30); MONOCYTES % (AUTO) 9.4 % (2.0-12.0); NEUTROPHILS # (AUTO) 2.2 /CMM (1.8-8.9); NEUTROPHILS % (AUTO) 34.4 % (43.0-81.0); PLATELET COUNT (AUTO) 223 /CMM (150-450); RED BLOOD CELL COUNT(AUTO) 4.11 MIL/uL (4.5-6.0); WHITE BLOOD COUNT (AUTO) 6.3 K/uL (4.3-11.0)
[2018-08-21 02:48] LABS: ALBUMIN 3.8 g/dL (3.4-5.0); BILIRUBIN,DIRECT 0.1 mg/dL (0.0-0.2); BILIRUBIN,TOTAL 0.2 mg/dL (0.2-1.0); CALCIUM, SERUM 8.5 mg/dL (8.5-10.1); CREATININE 0.9 mg/dL (0.6-1.3); POTASSIUM 3.8 mmol/L (3.5-5.1); TOTAL PROTEIN, SERUM 7.4 g/dL (6.4-8.2)
[2018-08-21 02:50] LABS: SALICYLATE 2.5 mg/dL (2.8-20.0)
[2018-08-21 05:11] VITALS: BP 138/77
--- NOTE | 2018-08-21 06:21 | NUR ---
Patient eloped from facility. ER MD notified.
== END 2018-08-21 06:22 | disposition left against medical advice (07) ==
LOC: ER 00:34
DX: R45.851 Suicidal ideations (principal); F10.10 Alcohol abuse, uncomplicated; F12.10 Cannabis abuse, uncomplicated; F31.9 Bipolar disorder, unspecified; F41.9 Anxiety disorder, unspecified; I10 Essential (primary) hypertension; F17.200 Nicotine dependence, unspecified, uncomplicated; Y90.6 Blood alcohol level of 120-199 mg/100 ml; Z59.0 Homelessness
CPT/HCPCS: 36415; 80048; 80076; 80305; 80307; 80329; 81001; 85025; 99284; G0480; 81000-TC

== ENCOUNTER 2018-08-22 14:05 | Emergency (ER) | payer OTHER ==
[~2018-08-22] VITALS: Ht 175.3 cm; Wt 72.6 kg
--- NOTE | 2018-08-22 15:55 | NUR ---
PT PRESENTED TO THE ER WITH A C/O SI WITH A PLAN TO RUN INTO TRAFFIC. PT AMBULATED TO ER 15 WITH A STEADY GAIT. URINE SAMPLE WAS OBTAINED.
--- NOTE | 2018-08-22 16:08 | NUR ---
SECOND COOK AND BAKER IS AT THE BEDSIDE.
[2018-08-22 16:19] LABS: BASOPHILS % (AUTO) 0.8 % (0.0-2.0); EOSINOPHILS % (AUTO) 5.7 % (0.0-6.0); HEMATOCRIT 43 % (39-51); HEMOGLOBIN 14.6 g/dL (13.5-17.5); LYMPHOCYTES # (AUTO) 2.4 /CMM (0.8-4.8); LYMPHOCYTES % (AUTO) 46.2 % (20.0-44.0); MEAN CORPUSCULAR HGB CONC 34 g/dl (31.0-36.0); MEAN CORPUSCULAR VOLUME 100 fL (80-96); MONOCYTES # (AUTO) 0.4 /CMM (0.1-1.30); MONOCYTES % (AUTO) 7.5 % (2.0-12.0); NEUTROPHILS # (AUTO) 2.1 /CMM (1.8-8.9); NEUTROPHILS % (AUTO) 39.8 % (43.0-81.0); PLATELET COUNT (AUTO) 269 /CMM (150-450); RED BLOOD CELL COUNT(AUTO) 4.36 MIL/uL (4.5-6.0); WHITE BLOOD COUNT (AUTO) 5.2 K/uL (4.3-11.0)
--- NOTE | 2018-08-22 16:20 | NUR ---
PT REMOVED BP CUFF AND PULSE OX. PT DOES NOT WANT TO KEEP THEM ON.
[2018-08-22 16:25] LABS: CALCIUM, SERUM 8.6 mg/dL (8.5-10.1); CARBON DIOXIDE 25 mmol/L (21-32); CHLORIDE 110 mmol/L (98-107); CREATININE 0.9 mg/dL (0.6-1.3); GLUCOSE 131 mg/dL (74-106); POTASSIUM 3.5 mmol/L (3.5-5.1); SODIUM SERUM 148 mmol/L (136-145); UREA NITROGEN, BLOOD 8 mg/dL (7-18)
[2018-08-22 16:39] LABS: ALANINE AMINOTRANSFERASE 22 U/L (12-78); ALBUMIN 3.7 g/dL (3.4-5.0); ALCOHOL, BLOOD 337 mg/dL (0-0); ALKALINE PHOSPHATASE 90 U/L (46-116); ASPARTATE AMINOTRANSFERASE 28 U/L (15-37); BILIRUBIN,TOTAL 0.1 mg/dL (0.2-1.0); SALICYLATE 2.8 mg/dL (2.8-20.0); TOTAL PROTEIN, SERUM 7.2 g/dL (6.4-8.2)
[2018-08-22 16:41] LABS: ACETAMINOPHEN < 2 ug/ml (10-30)
--- NOTE | 2018-08-22 16:45 | NUR ---
PT AMBULATED TO THE BATHROOM WITH A STEADY GAIT.
--- NOTE | 2018-08-22 16:50 | NUR ---
URINE SAMPLE OBTAINED AND SENT TO LAB.
[2018-08-22 17:08] LABS: APPEARANCE,URINE Clear (CLEAR); BILIRUBIN,URINE SMALL (NEGATIVE); BLOOD, URINE Trace-lysed Ery/uL (NEGATIVE); COLOR,URINE Yellow (YELLOW); KETONES,URINE Negative (NEGATIVE); LEUKOCYTE ESTERASE ,URINE Negative (NEGATIVE); NITRITE, URINE Negative (NEGATIVE); PH,URINE 5.5 (5.0-8.0); PROTEIN,URINE Trace mg/dl (NEGATIVE); UGLUCOSE Negative (NEGATIVE); UROBILINOGEN,URINE 0.2 EU/dL (0.2)
[2018-08-22 17:30] LABS: BACTERIA,URINE Rare /HPF (None Seen); SQUAMOUS EPITHELIAL CELL,UR Few /HPF (None Seen); WBC,URINE 0-2 /HPF (0-3)
--- NOTE | 2018-08-22 18:20 | NUR ---
PT APPEARS COMFORTABLE. NO S/S OF PAIN OR DISTRESS NOTED.
--- NOTE | 2018-08-22 19:52 | NUR ---
PT APPEARS TO BE SLEEPING COMFORTABLY WITH NO S/S OF PAIN OR DISTRESS.
--- NOTE | 2018-08-22 22:00 | NUR ---
PT APPEARS TO BE SLEEPING COMFORTABLY WITH NO S/S OF PAIN OR DISTRESS.
--- NOTE | 2018-08-22 22:41 | NUR ---
PT APPEARS TO BE SLEEPING SOUNDLY WITH NO S/S OF PAIN OR DISTRESS NOTED. PT'S O2 SAT IS 90% ON RA WHILE SLEEPING. PT WAS PLACED ON 2L O2 VIA NC AND PT IS NOW SATURATING AT 97% ON 2L.
--- NOTE | 2018-08-22 23:11 | NUR ---
PT APPEARS TO BE SLEEPING SOUNDLY. VSS.
--- NOTE | 2018-08-22 23:30 | NUR ---
PT REMOVED THE BP CUFF AND PULSE OX AND WALKED TO THE NURSE'S STATION. PT STATED THAT HE WANTS TO GO OUT TO SMOKE AND GO DOWN THE STREET TO GET SOME FOOD. PT WAS TOLD THAT HE COULD NOT GO OUTSIDE AT THIS TIME. PT AMBULATED BACK TO ER 15 WITH A STEADY GAIT.
--- NOTE | 2018-08-23 00:01 | NUR ---
PT REC'D A SANDWICH AND JUICE. PT IS TOLERATING PO WELL.
--- NOTE | 2018-08-23 00:05 | NUR ---
SEO INTERN IS AT THE BEDSIDE FOR ALCOHOL REDRAW.
--- NOTE | 2018-08-23 00:07 | NUR ---
PT'S BELONGINGS WERE AT THE BEDSIDE THEY WERE CHECKED UPON ARRIVAL AND PT WAS VOLUNTARILY GOING TO THE PSYCH FACILITY. PT'S ALCOHOL REDRAW RECHECKED AND PT HAD A WATER BOTTLE FULL OF VODKA IN HIS BAG. CHARGE NURSE WAS NOTIFIED AND BOTTLE WAS REMOVED.
--- NOTE | 2018-08-23 00:08 | NUR ---
PT REC'D 3 MORE JUICE BOXES.
--- NOTE | 2018-08-23 02:04 | NUR ---
PT APPEARS TO BE RESTING COMFORTABLY WITH NO S/S OF PAIN OR DISTRESS.
--- NOTE | 2018-08-23 02:04 | NUR ---
REPORT GIVEN TO BERNARDINO FALCON/ELYSE FOR MELBA.
--- NOTE | 2018-08-23 06:33 | NUR ---
PT DENIES BEING SUICIDAL OR HOMICIDAL. PT OK TO DISCHARGE PER DR NICOLE. Patient discharged to home in stable condition. Written and verbal after care instructions given. Patient verbalizes understanding of instruction.Patient is awake and alert to self, day, and place. PT ambulatory with a steady gait
[2018-08-23 06:37] VITALS: BP 125/76
== END 2018-08-23 06:38 | disposition home or self-care (01) ==
LOC: ER 14:07
DX: R45.851 Suicidal ideations (principal); F10.129 Alcohol abuse with intoxication, unspecified; I10 Essential (primary) hypertension; F17.200 Nicotine dependence, unspecified, uncomplicated; Z59.0 Homelessness; Z79.899 Other long term (current) drug therapy; Y90.8 Blood alcohol level of 240 mg/100 ml or more
CPT/HCPCS: 36415; 80048; 80076; 80305; 80307 ×2; 80329; 81001; 85025; 99284; G0480; 81000-TC

== ENCOUNTER 2018-09-27 12:59 | Emergency (ER) | payer OTHER ==
[~2018-09-27] VITALS: Ht 175.3 cm; Wt 74.4 kg
--- NOTE | 2018-09-27 13:01 | NUR ---
PT BBISELF FOR S/I, PLANS TO JUMP INTO TRAFFIC; PT AAOX4, -SOB, NAD NOTED, PT ON MONITOR, S/I PRECAUTIONS STARTED, VSS. PENDING MD TABOR
[2018-09-27 13:27] LABS: BASOPHILS % (AUTO) 0.8 % (0.0-2.0); EOSINOPHILS % (AUTO) 5.1 % (0.0-6.0); HEMATOCRIT 44 % (39-51); HEMOGLOBIN 14.9 g/dL (13.5-17.5); LYMPHOCYTES # (AUTO) 2.9 /CMM (0.8-4.8); LYMPHOCYTES % (AUTO) 47.3 % (20.0-44.0); MEAN CORPUSCULAR HGB CONC 34 g/dl (31.0-36.0); MEAN CORPUSCULAR VOLUME 100 fL (80-96); MONOCYTES # (AUTO) 0.5 /CMM (0.1-1.30); MONOCYTES % (AUTO) 7.7 % (2.0-12.0); NEUTROPHILS # (AUTO) 2.4 /CMM (1.8-8.9); NEUTROPHILS % (AUTO) 39.1 % (43.0-81.0); PLATELET COUNT (AUTO) 323 /CMM (150-450); RED BLOOD CELL COUNT(AUTO) 4.44 MIL/uL (4.5-6.0); WHITE BLOOD COUNT (AUTO) 6.1 K/uL (4.3-11.0)
[2018-09-27 13:33] LABS: CALCIUM, SERUM 8.6 mg/dL (8.5-10.1); POTASSIUM 3.7 mmol/L (3.5-5.1)
[2018-09-27 13:48] LABS: BILIRUBIN,DIRECT 0.1 mg/dL (0.0-0.2); BILIRUBIN,TOTAL 0.2 mg/dL (0.2-1.0); SALICYLATE 4.7 mg/dL (2.8-20.0); TOTAL PROTEIN, SERUM 7.8 g/dL (6.4-8.2)
--- NOTE | 2018-09-27 14:31 | NUR ---
PINKY ETA 1 HR
[2018-09-27 14:48] LABS: APPEARANCE,URINE CLEAR (CLEAR); BILIRUBIN,URINE NEGATIVE (NEGATIVE); BLOOD, URINE NEGATIVE Ery/uL (NEGATIVE); KETONES,URINE NEGATIVE (NEGATIVE); LEUKOCYTE ESTERASE ,URINE NEGATIVE (NEGATIVE); NITRITE, URINE NEGATIVE (NEGATIVE); PROTEIN,URINE NEGATIVE (NEGATIVE); UGLUCOSE NEGATIVE (NEGATIVE); UROBILINOGEN,URINE 0.2 EU/dL (0.2)
[2018-09-27 14:56] LABS: COLOR,URINE Light yellow (YELLOW)
[2018-09-27 17:00] VITALS: BP 130/74
--- NOTE | 2018-09-27 17:00 | NUR ---
VITAL SIGNS UPDATED.
--- NOTE | 2018-09-27 21:16 | NUR ---
NURSING SUP INFORMED ABOUT PT ELOPMENT FROM EMERGENCY DEPARTMENT.
--- NOTE | 2018-09-27 21:19 | NUR ---
PT ELOPED FROM EMERGECY DEPT BEFORE PSYCH CLINICIAN WAS ABLE TO ASSESS PT. DR ARTHUR AWARE. PT WAS LAST SEEN 1700
--- NOTE | 2018-09-27 21:22 | NUR ---
TRIED CALLING [employer] NON EMERGENCY HOTLINE. WAS ON HOLD FOR 30 MINS. WILL TRY AGAIN LATER.
== END 2018-09-27 22:19 | disposition left against medical advice (07) ==
LOC: ER 12:59
DX: R45.851 Suicidal ideations (principal); F10.129 Alcohol abuse with intoxication, unspecified; I10 Essential (primary) hypertension; F31.9 Bipolar disorder, unspecified; F41.9 Anxiety disorder, unspecified; F17.200 Nicotine dependence, unspecified, uncomplicated; Y90.8 Blood alcohol level of 240 mg/100 ml or more; Z59.0 Homelessness
CPT/HCPCS: 36415; 80048; 80076; 80305; 80307; 80329; 81001; 85025; 99284; G0480; 81000-TC

== ENCOUNTER 2018-09-29 02:13 | Emergency (ER) | payer OTHER ==
[~2018-09-29] VITALS: Ht 172.7 cm; Wt 74.8 kg
--- NOTE | 2018-09-29 03:05 | NUR ---
PT BIBSELF FROM STREET C/O +SI/-HI W/PLAN TO RUN INTO TRAFFIC. NAD NOTED. RESP EVEN AND UNLABORED. PT ON MONITOR IN BED 12. PT IN GOWN. BELONGINGS IN UTILITY ROOM. WILL CONTINUE TO MONITOR.
--- NOTE | 2018-09-29 03:08 | NUR ---
PT UNABLE TO PROVIDE URINE AT THIS TIME. WATER GIVEN TO PT.
[2018-09-29 03:10] LABS: BASOPHILS % (AUTO) 0.6 % (0.0-2.0); HEMATOCRIT 47 % (39-51); HEMOGLOBIN 15.8 g/dL (13.5-17.5); LYMPHOCYTES # (AUTO) 1.8 /CMM (0.8-4.8); LYMPHOCYTES % (AUTO) 42.8 % (20.0-44.0); MEAN CORPUSCULAR HGB CONC 34 g/dl (31.0-36.0); MEAN CORPUSCULAR VOLUME 100 fL (80-96); MONOCYTES # (AUTO) 0.3 /CMM (0.1-1.30); MONOCYTES % (AUTO) 7.7 % (2.0-12.0); NEUTROPHILS % (AUTO) 46.9 % (43.0-81.0); PLATELET COUNT (AUTO) 298 /CMM (150-450); RED BLOOD CELL COUNT(AUTO) 4.73 MIL/uL (4.5-6.0); WHITE BLOOD COUNT (AUTO) 4.3 K/uL (4.3-11.0)
[2018-09-29 03:29] LABS: ALBUMIN 4.2 g/dL (3.4-5.0); BILIRUBIN,DIRECT 0.1 mg/dL (0.0-0.2); BILIRUBIN,TOTAL 0.2 mg/dL (0.2-1.0); CALCIUM, SERUM 9.3 mg/dL (8.5-10.1); CREATININE 1.3 mg/dL (0.6-1.3); POTASSIUM 4.1 mmol/L (3.5-5.1); SALICYLATE 4.7 mg/dL (2.8-20.0); TOTAL PROTEIN, SERUM 8.1 g/dL (6.4-8.2)
--- NOTE | 2018-09-29 05:05 | NUR ---
Patient is resting comfortably in bed with eyes closed. Easily aroused. VSS.
[2018-09-29 05:46] LABS: APPEARANCE,URINE Cloudy (CLEAR); BILIRUBIN,URINE Negative (NEGATIVE); BLOOD, URINE Small Ery/uL (NEGATIVE); COLOR,URINE Yellow (YELLOW); KETONES,URINE 15 (NEGATIVE); LEUKOCYTE ESTERASE ,URINE Negative (NEGATIVE); NITRITE, URINE Negative (NEGATIVE); PH,URINE 5.5 (5.0-8.0); PROTEIN,URINE 30 mg/dl (NEGATIVE); UGLUCOSE Negative (NEGATIVE); UROBILINOGEN,URINE 0.2 EU/dL (0.2)
[2018-09-29 06:00] LABS: BACTERIA,URINE Few /HPF (None Seen); SQUAMOUS EPITHELIAL CELL,UR Rare /HPF (None Seen); URIC ACID CRYSTALS,URINE Many /HPF (None Seen); WBC,URINE 0-2 /HPF (0-3)
--- NOTE | 2018-09-29 07:36 | NUR ---
REPORT GIVEN TO BERNARDINO PINEDA FOR [facility]
--- NOTE | 2018-09-29 07:45 | NUR ---
NICK MACKEY CALLED FOR A 1:1 SITTER
--- NOTE | 2018-09-29 07:52 | NUR ---
WANDED BY SECURITY
--- NOTE | 2018-09-29 07:55 | NUR ---
1:1 SITTER AT BEDSIDE
--- NOTE | 2018-09-29 09:23 | NUR ---
BASKETBALL SCOUT ANETA BRUNER AT BEDSIDE
--- NOTE | 2018-09-29 10:11 | NUR ---
PROVIDED MEAL TRAY. PT STILL ASLEEP, PLACED MEAL TRAY AT BEDSIDE
--- NOTE | 2018-09-29 10:28 | NUR ---
MARY JANE CALLED FROM [facility] VN REQUESTING COPIES OF UDS AND MD NOTE SAYING MEDICALLY CLEARED.
--- NOTE | 2018-09-29 11:54 | NUR ---
FAXED REPEAT BLOOD ALCOHOL LEVEL TO [facility] [phone]
--- NOTE | 2018-09-29 15:28 | NUR ---
CALLED [facility], INTAKE AT [facility]. PT IS ACCEPTED.
--- NOTE | 2018-09-29 15:32 | NUR ---
CALLED [facility] FOR TRANSPORT TO [facility], ETA [phone],TRIP #[id number]
--- NOTE | 2018-09-29 15:42 | NUR ---
CALLING REPORT TO BERNARDINO MITCHELL AT [facility]
--- NOTE | 2018-09-29 15:42 | NUR ---
ASSUMED CARE OF PT FOR REPORT.
--- NOTE | 2018-09-29 15:52 | NUR ---
Note myah in EDM - 09/29/18 at 1603 by NELSON REPORT GIVEN TO MARIPOSA CHAPARRO, UNIT 520. PT IS GOING TO [facility] VIA AMBULANCE.
--- NOTE | 2018-09-29 16:02 | NUR ---
CALLING FOR A MEAL TRAY.
--- NOTE | 2018-09-29 16:29 | NUR ---
REPORT GIVEN TO ADAN EMT, UNIT [address]. PT IS BEING TRANSFERED TO [facility] VIA AMBULANCE.
[2018-09-29] MEDS ORDERED: CLONIDINE HCL 0.1 MG TABLET ONE (16:40)
[2018-09-29] MEDS ORDERED: CLONIDINE HCL 0.1 MG TABLET PO ONE (17:00)
--- NOTE | 2018-09-29 17:00 | NUR ---
CALLED BERNARDINO MITCHELL AT [facility] AND SPOKE TO HER RE: PT'S ELEVATED BP. PT CAN BE TRANSFERED ONCE THE DBP IS BELOW 100.
[2018-09-29 17:20] VITALS: BP 161/88
--- NOTE | 2018-09-29 17:22 | NUR ---
Pt's BP is now 161/88. Ambulance EMT's are at the bedside for transport to [facility]. is aware.
--- NOTE | 2018-09-29 17:27 | NUR ---
PT TRANSFERED OUT VIA AMBULANCE.
== END 2018-09-29 17:29 ==
LOC: ER 02:13
DX: R45.851 Suicidal ideations (principal); F10.129 Alcohol abuse with intoxication, unspecified; I10 Essential (primary) hypertension; F31.9 Bipolar disorder, unspecified; F41.9 Anxiety disorder, unspecified; F17.200 Nicotine dependence, unspecified, uncomplicated; Y90.7 Blood alcohol level of 200-239 mg/100 ml; Z59.0 Homelessness
CPT/HCPCS: 36415; 80048; 80076; 80307 ×2; 80329; 81001; 85025; 99285; G0480; 80305; 81000-TC

== ENCOUNTER 2018-11-05 23:57 | Emergency (ER) | payer OTHER ==
[~2018-11-05] VITALS: Ht 175.3 cm; Wt 76.2 kg
--- NOTE | 2018-11-06 01:51 | NUR ---
EVERETT FROM STREET. HOMELESS, AAOX4. NAD NOTED. AMBULATORY. CAME IN FOR SUICIDAL IDEATION WITH PLAN TO RUN INTO TRAFFIC. PT REPORTS HEARING VOICES TELLING HIM TO RUN INTO TRAFFIC. PT TO BED 15. STRIPPED OF CLOTHING AND BELONGINGS KEPT IN THE UTILITY ROOM BY MD OFFICE. URINE COLLECTED AND SENT TO LAB. AWAITING MD TABOR
[2018-11-06 02:14] LABS: BASOPHILS # (AUTO) 0.1 /CMM (0.0-0.2); BASOPHILS % (AUTO) 0.8 % (0.0-2.0); EOSINOPHILS % (AUTO) 6.4 % (0.0-6.0); HEMATOCRIT 41 % (39-51); HEMOGLOBIN 13.9 g/dL (13.5-17.5); LYMPHOCYTES # (AUTO) 3.2 /CMM (0.8-4.8); LYMPHOCYTES % (AUTO) 46.7 % (20.0-44.0); MEAN CORPUSCULAR HGB CONC 34 g/dl (31.0-36.0); MEAN CORPUSCULAR VOLUME 99 fL (80-96); MONOCYTES # (AUTO) 0.5 /CMM (0.1-1.30); MONOCYTES % (AUTO) 7.2 % (2.0-12.0); NEUTROPHILS # (AUTO) 2.6 /CMM (1.8-8.9); NEUTROPHILS % (AUTO) 38.9 % (43.0-81.0); PLATELET COUNT (AUTO) 279 /CMM (150-450); RED BLOOD CELL COUNT(AUTO) 4.19 MIL/uL (4.5-6.0); WHITE BLOOD COUNT (AUTO) 6.8 K/uL (4.3-11.0)
[2018-11-06 02:15] LABS: APPEARANCE,URINE CLEAR (CLEAR); BILIRUBIN,URINE NEGATIVE (NEGATIVE); BLOOD, URINE TRACE-INTA Ery/uL (NEGATIVE); COLOR,URINE YELLOW (YELLOW); KETONES,URINE NEGATIVE (NEGATIVE); LEUKOCYTE ESTERASE ,URINE NEGATIVE (NEGATIVE); NITRITE, URINE NEGATIVE (NEGATIVE); PH,URINE 5.5 (5.0-8.0); PROTEIN,URINE NEGATIVE (NEGATIVE); UGLUCOSE NEGATIVE (NEGATIVE); UROBILINOGEN,URINE 0.2 EU/dL (0.2)
[2018-11-06 02:22] LABS: ALBUMIN 3.7 g/dL (3.4-5.0); BILIRUBIN,DIRECT 0.1 mg/dL (0.0-0.2); BILIRUBIN,TOTAL 0.2 mg/dL (0.2-1.0); CALCIUM, SERUM 8.6 mg/dL (8.5-10.1); CREATININE 0.9 mg/dL (0.6-1.3); POTASSIUM 3.9 mmol/L (3.5-5.1); TOTAL PROTEIN, SERUM 7.4 g/dL (6.4-8.2)
[2018-11-06 02:23] LABS: BACTERIA,URINE Few /HPF (None Seen); RBC,URINE 0-2 /HPF (0-2); SQUAMOUS EPITHELIAL CELL,UR Rare /HPF (None Seen); URIC ACID CRYSTALS,URINE Moderate /HPF (None Seen); WBC,URINE 0-2 /HPF (0-3)
--- NOTE | 2018-11-06 02:54 | NUR ---
ART METAL STUD FRAMER ON ROUTE TO ASSESS PATIENT.
--- NOTE | 2018-11-06 03:27 | NUR ---
PT IN BED SLEEPING. NAD NOTED. EASILY ARROUSABLE
--- NOTE | 2018-11-06 05:16 | NUR ---
ACCEPTED TO [facility]. BED WILL BE AVAILABLE AFTER 0730 AM. NUMBER FOR REPORT EXT [phone]. ACCEPTING MD. DURAND
--- NOTE | 2018-11-06 05:21 | NUR ---
[facility] TRIP NUMBER [id number] ETA.
--- NOTE | 2018-11-06 06:10 | NUR ---
REPORT GIVEN TO ARUN LEBRON
--- NOTE | 2018-11-06 07:33 | NUR ---
MARIPOSA 122 AT BEDSIDE FOR PT TRANSPORT TO [facility]. REPORT GIVEN. PT IS IN STABLE CONDITION FOR TRANSPORT.
--- NOTE | 2018-11-06 07:40 | NUR ---
BP OF 171/105, MADE AWARE, RECEIVED VERBAL ORDER OF CLONIDINE 0.2MG PO. CARRIED OUT
[2018-11-06] MEDS ORDERED: CLONIDINE HCL 0.1 MG TABLET ONE (07:41)
[2018-11-06] MEDS ORDERED: CLONIDINE HCL 0.1 MG TABLET PO ONE (08:00)
[2018-11-06] MEDS ORDERED: ATENOLOL 50 MG TABLET ONE (08:49)
[2018-11-06] MEDS ORDERED: ATENOLOL 50 MG TABLET PO ONE (09:00)
--- NOTE | 2018-11-06 09:02 | NUR ---
[facility] TRIP NUMBER [id number] NEW ETA IS [phone]
--- NOTE | 2018-11-06 09:42 | NUR ---
MEAL TRAY PROVIDED. PT TOLERATING PO WELL
[2018-11-06] MEDS ORDERED: LORAZEPAM 1 MG TABLET ONE (10:38)
--- NOTE | 2018-11-06 10:40 | NUR ---
SPOKE TO RN AUTOMOBILE RADIATOR MECHANIC ELOISA, BP 161/99, RN AUTOMOBILE RADIATOR MECHANIC ACCEPTED PT. RECEIVED VERBAL ORDER FROM DR HEADLEY OF [facility] 1MG PO. CARRIED OUT
[2018-11-06 11:00] VITALS: BP 147/107
[2018-11-06] MEDS ORDERED: LORAZEPAM 1 MG TABLET PO ONE (11:00)
--- NOTE | 2018-11-06 11:03 | NUR ---
MARIPOSA 331 AT BEDSIDE FOR PT TRANSPORT TO [facility]. REPORT GIVEN TO ELOISA ADULT CARE PROVIDER. PT IS IN STABLE CONDITION FOR TRANSPORT.
== END 2018-11-06 11:10 ==
LOC: ER 23:57
DX: R45.851 Suicidal ideations (principal); F10.10 Alcohol abuse, uncomplicated; F12.10 Cannabis abuse, uncomplicated; F17.200 Nicotine dependence, unspecified, uncomplicated; F31.9 Bipolar disorder, unspecified; F41.9 Anxiety disorder, unspecified; I10 Essential (primary) hypertension; Y90.5 Blood alcohol level of 100-119 mg/100 ml; Z59.0 Homelessness
CPT/HCPCS: 36415; 80048; 80076; 80305; 80307; 80329; 81001; 85025; 99285; G0480; 81000-TC

== ENCOUNTER 2018-11-12 22:33 | Emergency (ER) | payer OTHER ==
[~2018-11-12] VITALS: Ht 172.7 cm; Wt 72.6 kg
[2018-11-12 22:33] VITALS: BP 141/89
--- NOTE | 2018-11-12 22:33 | NUR ---
Pt to er c/o si with plan to run into traffic. No immediate signs of distress noted. Pt changed into gown and belongings removed from pt. Si precuations implemented. pt vital signs stable. pt calm and cooperative. will cont to monitor pt.
[2018-11-12 22:56] LABS: BASOPHILS % (AUTO) 0.6 % (0.0-2.0); EOSINOPHILS % (AUTO) 7.1 % (0.0-6.0); HEMATOCRIT 50 % (39-51); HEMOGLOBIN 16.9 g/dL (13.5-17.5); LYMPHOCYTES # (AUTO) 3.6 /CMM (0.8-4.8); LYMPHOCYTES % (AUTO) 49.7 % (20.0-44.0); MEAN CORPUSCULAR HGB CONC 34 g/dl (31.0-36.0); MEAN CORPUSCULAR VOLUME 99 fL (80-96); MONOCYTES # (AUTO) 0.5 /CMM (0.1-1.30); MONOCYTES % (AUTO) 6.9 % (2.0-12.0); NEUTROPHILS # (AUTO) 2.6 /CMM (1.8-8.9); NEUTROPHILS % (AUTO) 35.7 % (43.0-81.0); PLATELET COUNT (AUTO) 204 /CMM (150-450); RED BLOOD CELL COUNT(AUTO) 5.03 MIL/uL (4.5-6.0); WHITE BLOOD COUNT (AUTO) 7.2 K/uL (4.3-11.0)
[2018-11-12 23:00] LABS: CALCIUM, SERUM 9.1 mg/dL (8.5-10.1); CREATININE 1.1 mg/dL (0.6-1.3); POTASSIUM 3.9 mmol/L (3.5-5.1)
[2018-11-12 23:04] LABS: APPEARANCE,URINE Clear (CLEAR); BILIRUBIN,URINE Negative (NEGATIVE); BLOOD, URINE Moderate Ery/uL (NEGATIVE); COLOR,URINE Yellow (YELLOW); KETONES,URINE Negative (NEGATIVE); LEUKOCYTE ESTERASE ,URINE Negative (NEGATIVE); NITRITE, URINE Negative (NEGATIVE); PH,URINE 5.5 (5.0-8.0); PROTEIN,URINE >=300 mg/dl (NEGATIVE); UGLUCOSE Negative (NEGATIVE); UROBILINOGEN,URINE 0.2 EU/dL (0.2)
[2018-11-12 23:07] LABS: ALBUMIN 4.6 g/dL (3.4-5.0); BILIRUBIN,DIRECT 0.1 mg/dL (0.0-0.2); BILIRUBIN,TOTAL 0.1 mg/dL (0.2-1.0); SALICYLATE 4.1 mg/dL (2.8-20.0)
[2018-11-13 00:09] LABS: BACTERIA,URINE Few /HPF (None Seen); SQUAMOUS EPITHELIAL CELL,UR Rare /HPF (None Seen); URIC ACID CRYSTALS,URINE Moderate /HPF (None Seen); WBC,URINE 0-2 /HPF (0-3)
--- NOTE | 2018-11-13 02:00 | NUR ---
pt sleeping in gurney, no signs of distress noted. pt vital signs stable. will cont to monitor pt.
--- NOTE | 2018-11-13 07:43 | NUR ---
AMBULATED TO RESTROOM WITH STEADY GAIT,DENIES SI/HI AT THIS TIME. VERBALIZED HE WANTED TO LEAVE, DR HOPSON INFORMED. OK'D FOR DISCHARGED AT THIS TIME.
--- NOTE | 2018-11-13 08:25 | NUR ---
Patient given written and verbal discharge instructions. Patient verbalizes understanding of instructions. Patient is ambulatory with steady gait. Refuses offer of [facility] placement. Patient given list of available shelters in surrounding area.
== END 2018-11-13 08:26 | disposition home or self-care (01) ==
LOC: ER 22:35
DX: R45.851 Suicidal ideations (principal); F19.10 Other psychoactive substance abuse, uncomplicated; F31.9 Bipolar disorder, unspecified; F41.9 Anxiety disorder, unspecified; I10 Essential (primary) hypertension; F10.10 Alcohol abuse, uncomplicated; F17.200 Nicotine dependence, unspecified, uncomplicated; F12.10 Cannabis abuse, uncomplicated; Y90.8 Blood alcohol level of 240 mg/100 ml or more; Z60.2 Problems related to living alone
CPT/HCPCS: 36415; 80048; 80076; 80305; 80307; 80329; 81001; 85025; 99284; G0480; 81000-TC

== ENCOUNTER 2018-11-14 09:21 | Emergency (ER) | payer OTHER ==
[~2018-11-14] VITALS: Ht 167.6 cm; Wt 65.8 kg
--- NOTE | 2018-11-14 09:25 | NUR ---
Suicidal ideation with plan to jump into traffic. Patient a/ox3, denies hearing voices, hallucinations. Vitals stable, Changed patients clothes to a gown. sitter at bedside. no distress noted.
--- NOTE | 2018-11-14 09:47 | NUR ---
PT WANDED BY SECURITY. BELONGINGS PLACED IN A SAFE PLACE.
[2018-11-14 09:55] LABS: BASOPHILS % (AUTO) 0.6 % (0.0-2.0); EOSINOPHILS % (AUTO) 3.8 % (0.0-6.0); HEMATOCRIT 46 % (39-51); HEMOGLOBIN 15.6 g/dL (13.5-17.5); LYMPHOCYTES % (AUTO) 45.5 % (20.0-44.0); MEAN CORPUSCULAR HGB CONC 34 g/dl (31.0-36.0); MEAN CORPUSCULAR VOLUME 98 fL (80-96); MONOCYTES # (AUTO) 0.5 /CMM (0.1-1.30); MONOCYTES % (AUTO) 8.1 % (2.0-12.0); NEUTROPHILS # (AUTO) 2.8 /CMM (1.8-8.9); PLATELET COUNT (AUTO) 181 /CMM (150-450); RED BLOOD CELL COUNT(AUTO) 4.71 MIL/uL (4.5-6.0); WHITE BLOOD COUNT (AUTO) 6.6 K/uL (4.3-11.0)
[2018-11-14 10:05] LABS: CALCIUM, SERUM 8.7 mg/dL (8.5-10.1); POTASSIUM 3.9 mmol/L (3.5-5.1)
[2018-11-14 10:11] LABS: ALBUMIN 4.5 g/dL (3.4-5.0); BILIRUBIN,DIRECT 0.1 mg/dL (0.0-0.2); BILIRUBIN,TOTAL 0.3 mg/dL (0.2-1.0); SALICYLATE 3.7 mg/dL (2.8-20.0); TOTAL PROTEIN, SERUM 8.5 g/dL (6.4-8.2)
[2018-11-14] MEDS ORDERED: ATENOLOL 50 MG TABLET PO ONE (10:30)
[2018-11-14 10:36] LABS: APPEARANCE,URINE Clear (CLEAR); BILIRUBIN,URINE SMALL (NEGATIVE); BLOOD, URINE Moderate Ery/uL (NEGATIVE); COLOR,URINE Yellow (YELLOW); KETONES,URINE Negative (NEGATIVE); LEUKOCYTE ESTERASE ,URINE Negative (NEGATIVE); NITRITE, URINE Negative (NEGATIVE); PH,URINE 5.5 (5.0-8.0); PROTEIN,URINE 100 mg/dl (NEGATIVE); UGLUCOSE Negative (NEGATIVE); UROBILINOGEN,URINE 0.2 EU/dL (0.2)
[2018-11-14 10:40] LABS: BACTERIA,URINE Rare /HPF (None Seen); SQUAMOUS EPITHELIAL CELL,UR Rare /HPF (None Seen)
[2018-11-14] MEDS ORDERED: ATENOLOL 50 MG TABLET ONE (10:52)
[2018-11-14 16:21] VITALS: BP 112/72
--- NOTE | 2018-11-15 06:31 | NUR ---
Pt accepted to [facility] by Dr Jewell. # for report [phone]
--- NOTE | 2018-11-15 06:40 | NUR ---
[facility] called for S transport. ETA [phone]. Trip# [id number]
--- NOTE | 2018-11-15 06:45 | NUR ---
Report given to Herman LEBRON for continuation of care.
--- NOTE | 2018-11-15 08:00 | NUR ---
Patient is resting comfortably in bed with eyes closed. Easily aroused. VSS
--- NOTE | 2018-11-15 09:50 | NUR ---
Patient discharged to EMS in stable condition going to [facility]. Written and verbal after care instructions given. Patient verbalized understanding of instruction.
== END 2018-11-15 09:52 ==
LOC: ER 09:28
DX: R45.851 Suicidal ideations (principal); I10 Essential (primary) hypertension; F17.200 Nicotine dependence, unspecified, uncomplicated; Z59.0 Homelessness; Z79.899 Other long term (current) drug therapy
CPT/HCPCS: 36415 ×2; 80048; 80076; 80305; 80307 ×5; 80329; 81001; 85025; 99285; G0480; J7030 ×2; 81000-TC

== ENCOUNTER 2018-12-02 07:52 | Emergency (ER) | payer OTHER ==
[~2018-12-02] VITALS: Ht 167.6 cm; Wt 65.8 kg
--- NOTE | 2018-12-02 08:04 | NUR ---
patient came in to the ER c/o Suicidal ideation "i want to kill myself" with plan to jump into traffic. On room air, breathing evenly and unlabored. Sitter at bedside. Kept comfortable, will continue to monitor accordingly.
--- NOTE | 2018-12-02 08:22 | NUR ---
URINE SPECIMEN COLLECTED AND SENT TO LAB.
[2018-12-02 08:28] LABS: BASOPHILS % (AUTO) 0.5 % (0.0-2.0); EOSINOPHILS % (AUTO) 3.9 % (0.0-6.0); HEMATOCRIT 51 % (39-51); HEMOGLOBIN 17.3 g/dL (13.5-17.5); LYMPHOCYTES # (AUTO) 3.2 /CMM (0.8-4.8); LYMPHOCYTES % (AUTO) 56.1 % (20.0-44.0); MEAN CORPUSCULAR HGB CONC 34 g/dl (31.0-36.0); MEAN CORPUSCULAR VOLUME 98 fL (80-96); MONOCYTES # (AUTO) 0.4 /CMM (0.1-1.30); MONOCYTES % (AUTO) 6.6 % (2.0-12.0); NEUTROPHILS # (AUTO) 1.9 /CMM (1.8-8.9); NEUTROPHILS % (AUTO) 32.9 % (43.0-81.0); PLATELET COUNT (AUTO) 294 /CMM (150-450); RED BLOOD CELL COUNT(AUTO) 5.22 MIL/uL (4.5-6.0); WHITE BLOOD COUNT (AUTO) 5.7 K/uL (4.3-11.0)
--- NOTE | 2018-12-02 08:30 | NUR ---
FOOD TRAY PROVIDED.
[2018-12-02 08:37] LABS: APPEARANCE,URINE Clear (CLEAR); BILIRUBIN,URINE Negative (NEGATIVE); BLOOD, URINE Small Ery/uL (NEGATIVE); COLOR,URINE Yellow (YELLOW); KETONES,URINE Negative (NEGATIVE); LEUKOCYTE ESTERASE ,URINE Negative (NEGATIVE); NITRITE, URINE Negative (NEGATIVE); PH,URINE 5.5 (5.0-8.0); PROTEIN,URINE 30 mg/dl (NEGATIVE); UGLUCOSE Negative (NEGATIVE); UROBILINOGEN,URINE 0.2 EU/dL (0.2)
[2018-12-02 08:45] LABS: CALCIUM, SERUM 8.7 mg/dL (8.5-10.1); CARBON DIOXIDE 23 mmol/L (21-32); CHLORIDE 103 mmol/L (98-107); CREATININE 0.9 mg/dL (0.6-1.3); GLUCOSE 110 mg/dL (74-106); SODIUM SERUM 140 mmol/L (136-145); UREA NITROGEN, BLOOD 11 mg/dL (7-18)
[2018-12-02 08:55] LABS: BACTERIA,URINE Few /HPF (None Seen); SQUAMOUS EPITHELIAL CELL,UR Rare /HPF (None Seen)
[2018-12-02 08:56] LABS: HYALINE CASTS, URINE Rare /LPF (None Seen); RBC,URINE 0-2 /HPF (0-2); WBC,URINE 0-2 /HPF (0-3)
[2018-12-02 08:59] LABS: ALANINE AMINOTRANSFERASE 24 U/L (12-78); ALBUMIN 4.4 g/dL (3.4-5.0); ALCOHOL, BLOOD 410 mg/dL (0-0); ALKALINE PHOSPHATASE 93 U/L (46-116); ASPARTATE AMINOTRANSFERASE 31 U/L (15-37); BILIRUBIN,DIRECT 0.1 mg/dL (0.0-0.2); BILIRUBIN,TOTAL 0.1 mg/dL (0.2-1.0); SALICYLATE 3.7 mg/dL (2.8-20.0); TOTAL PROTEIN, SERUM 8.9 g/dL (6.4-8.2)
[2018-12-02 09:02] LABS: ACETAMINOPHEN < 2 ug/ml (10-30)
[2018-12-02 09:38] LABS: EOSINOPHILS % (MANUAL) 5 % (0-4); LYMPHOCYTES % (MANUAL) 50 % (16-48); MONOCYTES % (MANUAL) 8 % (0-11.0); NEUTROPHILS % (MANUAL) 35 (42-76); REACTIVE LYMPHOCYTES 2 % (0-0)
[2018-12-02 15:39] VITALS: BP 135/71
--- NOTE | 2018-12-02 15:50 | NUR ---
Patient does not wish to proceed with medical care recommended by Dr. Montaño. Patient given information related to possible complications, up to and including , which could occur as a result of leaving the hospital at this time. Patient verbalizes understanding of risks involved due to leaving against medical advice. Patient has signed AMA form.
== END 2018-12-02 16:41 | disposition left against medical advice (07) ==
LOC: ER 07:52
DX: R45.851 Suicidal ideations (principal); F10.129 Alcohol abuse with intoxication, unspecified; F17.200 Nicotine dependence, unspecified, uncomplicated; I10 Essential (primary) hypertension; Z59.0 Homelessness; Z79.899 Other long term (current) drug therapy; Y90.8 Blood alcohol level of 240 mg/100 ml or more
CPT/HCPCS: 36415; 80048; 80076; 80305; 80307; 80329; 81001; 85025; 99284; G0480; 81000-TC